=== PATIENT | female | born 2000 | race African-American/Black ===

== ENCOUNTER → 2021-01-26 14:51 | Outpatient (BNVA) | payer MEDICAID, SELFPAY | PROVIDERS: PCP Nurse Practitioner; Visit Provider Advanced Practice Midwife | DX: Z32.01 Encounter for pregnancy test, result positive (principal) | CPT/HCPCS: 81025; 99202 ==

== ENCOUNTER 2021-01-30 09:00 | Outpatient (REF) | payer MEDICAID, SELFPAY ==
--- NOTE | ~2021-01-30 | US_ITS ---
EXAMINATION: OBSTETRICAL ULTRASOUND, FIRST TRIMESTER HISTORY: 20-year-old with unknown LMP NT screening COMPARISON: None in this TECHNIQUE: Real time transabdominal imaging with color and M-mode Doppler. FINDINGS: A single, live IUP CRL of 76.8 mm c/w 13.6wks is noted. Heart Rate: 153 beats per minute. Normal yolk sac seen. NT was 1.5.mm. NB Present The embryo appears sonographically wnl for this GA. Both maternal ovaries are seen and appear normal. GESTATIONAL AGE: 1. Established GA: N/A wks 2. GA from AUA: 13.6 wks ESTIMATED DATE OF DELIVERY: 1. Established SKYE: N/A 2. SKYE from [facility]: 08/01/2021 US/US OB 1T nuc measure IMPRESSION: 1. A single live IUP 2. CRL corresponds to 13.6 weeks. Best SKYE is 08/01/2021 based on today's exam. 3. NT of 1.5 mm MFM Consultation: I reviewed the ultrasound findings along with significance of NT measurement. The NT of less than 3mm is generally reassuring. However, the sensitivity for T21 detection is only 60%. I reviewed the availability of serum aneuploidy screening which includes cell-free DNA and placental protein based tests. I discussed the sensitivity, false-positive rate, and other limitations associated with each test. I also reviewed the availability of invasive diagnostic tests that are associated small but definite risk of miscarriage. We also reviewed the differences between screening tests and diagnostic tests. After our discussion, she opted for the First trimester screening that is based on cell-free DNA or non-invasive testing (NIPT). The result will be faxed to your office in approximately 7 days. A follow up at 18 weeks for survey has been scheduled. Thank you very much for this referral. Total time 20 minutes. The time spent was devoted to counseling the patient about the disease and diagnosis, coordinating care including reviewing her records, pertinent lab data and studies, as well as discussing diagnostic evaluation and workup, plan therapeutic interventions and future disposition of care. This includes any additional research needed to obtain further information in formulating the plan of care of this patient. This note was generated with a voice recognition program. Please excuse any errors which may have been overlooked during my review of this note. Sometimes these errors may affect the content or meaning of a given sentence.
== END 2021-01-30 09:01 | disposition home or self-care (01) ==
LOC: HO.US 09:00
PROVIDERS: Visit Provider Advanced Practice Midwife
DX: Z36.82 Encounter for antenatal screening for nuchal translucency (principal)
CPT/HCPCS: 76813

== ENCOUNTER → 2021-02-11 13:47 | Outpatient (BNVA) | payer MEDICAID, SELFPAY | PROVIDERS: PCP Nurse Practitioner; Visit Provider Advanced Practice Midwife | DX: Z13.89 Encounter for screening for other disorder (principal) | CPT/HCPCS: 99212 ==

== ENCOUNTER 2021-02-19 22:46 | Emergency (ER) | payer MEDICAID, SELFPAY ==
--- NOTE | ~2021-02-19 | US_ITS ---
EXAMINATION: ULTRASOUND OB LIMITED CLINICAL INFORMATION: Vaginal bleeding, 16 weeks 6 days COMPARISON: 01/30/2021 TECHNIQUE: Sonographic evaluation of was performed transabdominally. FINDINGS: Single intrauterine identified with heart rate of 172 bpm. No anechoic amniotic fluid is present, which is a new finding compared to the prior study of 01/30/2021. Anterior placenta is noted, and there is echogenic material posterior to the placenta which is of uncertain etiology and may represent blood products. No movement is visualized. Head circumference measurement of 12.3 cm corresponds to gestational age of 16 weeks 2 days. Femur length of 2.1 cm corresponds to gestational age of 16 weeks 3 days. Suboptimal assessment of the abdominal circumference on the provided images. The right ovary measures 2.9 x 2.0 x 2.1 cm and appears unremarkable. The left ovary measures 2.2 x 2.1 x 1.3 cm and appears unremarkable. US/US OB limited IMPRESSION: No amniotic fluid is visualized, which is a new finding compared to 01/30/2021. Echogenic material is seen posterior to the placenta which may represent blood products. heart beat is identified, though no movement is observed. This critical result was discussed with Faviola Gray NP on 02/20/2021 2:50 AM, and it was ascertained that the content and urgency of the report was understood at the time of direct communication.
[2021-02-20 00:02] VITALS: BP 124/72; PULSE 88; RESP 16; TEMP 36.9; O2SAT 98; BMI 32.4
[2021-02-20 00:42] LABS: MANUAL DIFF FLAG NO
[2021-02-20 00:52] LABS: Basophils Percent Auto 0.1 % (0-2); Eosinophils Absolute Auto 0.4 X10*3/uL (0.0-0.4); Eosinophils Percent Auto 2.7 % (0-4); Hematocrit 36.9 % (37-47); Hemoglobin 12.1 g/dl (12.0-16.0); Imm Gran Abs Auto 0.05 X10*3/uL (0.00-0.03); Imm Gran Pct Auto 0.4 % (0.0-0.4); Mean Corpuscular HGB Conc 32.8 g/dl (31.0-35.0); Mean Corpuscular Hemoglobin 28.9 pg (27.0-33.0); Mean Corpuscular Volume 88.3 fL (80-98); Mean Platelet Volume 9.9 fL (9.4-12.3); Monocytes Absolute Auto 0.9 X10*3/uL (0.1-1.2); Monocytes Percent Auto 6.6 % (2-11); Neutrophils Absolute Auto 9.4 X10*3/uL (2.0-8.3); Neutrophils Percent Auto 68.2 % (45-73); Platelet Count 257 X10*3/uL (160-400); Red Blood Count 4.18 X10*6/uL (4.20-5.50); Red Cell Distribution Width 14.7 % (11.0-16.0); White Blood Count 13.8 X10*3/uL (4.8-10.8)
[2021-02-20 01:14] LABS: Alanine Aminotransferase 17 U/L (0-31); Albumin Level 3.5 g/dL (3.5-5.0); Alkaline Phosphatase 53 U/L (39-117); Anion Gap 14 (12-20); Aspartate Amino Transferase 17 U/L (5-31); Bilirubin Total 0.4 mg/dL (0.0-1.0); Blood Urea Nitrogen 8 mg/dL (9-16); Calcium 9.2 mg/dL (8.4-10.2); Carbon Dioxide 23 mmol/L (22-29); Chloride 106 mmol/L (96-108); Creatinine Clr Calc Pharmacy 126.7; Estimated Glomerular Filt Rate > 60; Glucose Random 93 mg/dL (60-115); Potassium 4.6 mmol/L (3.3-5.1); Sodium 138 mmol/L (135-145); Total Protein 6.5 g/dL (6.5-8.0)
[2021-02-20 01:41] LABS: HCG Quantitative 49152 mIU/mL
--- NOTE | 2021-02-20 01:56 | ED_ITS ---
HPI - General Chief complaint: OB Stated complaint: Vaginal bleeding/4 months preg Time Seen by Provider: 02/20/21 01:15 Source: patient Mode of arrival: ambulatory History of Present Illness HPI Narrative: 20-year-old female, gravid, 16.6 weeks based on ultrasound who presents with onset of vaginal bleeding after sexual intercourse approximately 2 hours prior to arrival. Patient states that initially there was copious amounts of blood with some clots towards the end and that the bleeding has slowly improved. Patient states that approximately 5 days ago she had a period of 3 days of abdominal cramping without any reports of fever, chills, nausea, vomiting, diarrhea or urinary symptoms. Patient states that that abdominal cramping stopped proximally 2 days ago. Related Data Home Medications Medication Instructions Recorded Confirmed prenat.vits,geno,tnh-[id number]-[id number] 1 tab PO DAILY 01/26/21 Previous Rx's Medication Instructions Recorded vitamin-ferrous fumarate 1 tab PO DAILY 30 Days #30 tab 02/11/21 28 mg iron-folic acid 800 mcg tablet Allergies Allergy/AdvReac Type Severity Reaction Status Date / Time No Known Allergies Allergy Verified 02/11/21 13:59 Review of Systems Review of Systems: Pertinent positives and negatives as stated in HPI and 10 point review of systems is otherwise negative. [facility] Past Medical History Source: nursing notes reviewed Medical History Asthma Family History Family History Brother Diabetes Maternal Aunt Diabetes Mother Cancer of breast, female Social History Social History Household Members: Family Housing: Condominium Are you a primary healthcare management to a significant other at home: No Do you presently have visiting nurse or other home services: No Alcohol intake: never Smoking Status: Never smoker Use of substances other than those prescribed or required for medical reasons: No Advance Directives: No Advance Directives Information Provided: No Patient : Yes Gender identity: female Physical Exam Vital Signs: Vital Signs: Last Vital Signs Temp 98.4 F 02/20/21 00:02 Pulse 83 02/20/21 02:59 Resp 16 02/20/21 02:59 BP 123/77 02/20/21 02:59 Pulse Ox 99 02/20/21 02:59 Body Mass Index 32.4 VITAL SIGNS: Reviewed. GENERAL: Well developed, well nourished, in no acute distress. HEAD: Normocephalic/atraumatic EYES: PERRLA, EOMI EARS: Ext canals without abnormality NOSE: Nares patent bilateral OROPHARYNX: no oral lesions noted, posterior pharynx clear NECK: Supple, no adenopathy LUNGS: Normal breath sounds. No adventitious sounds or accessory muscle use. SpO2<99> CARDIOVASCULAR: Regular rate and rhythm without noted murmurs ABDOMEN: Gravid, Soft, non-tender, non-distended with bowel sounds NEUROLOGIC: Alert and oriented x 4. Course Course Course Narrative: This is a 20-year-old female with history and clinical presentation concerning for complications. Review of all investigations significant for a leukocytosis which may be secondary to as patient has no chest/abdomen/urinary complaints. Review of ultrasound official reading is no amniotic fluid visualized, heartbeat is identified though no movement is observed . Patient was informed of all findings and informed that Dr. Niño would be contacting her tomorrow should she require the patient to follow-up sooner than her scheduled appointment next Tuesday. Reevaluation(s) Reevaluation #1: I discussed the case as well as the preliminary findings with Dr. Niño who recommends she will review the official ultrasound results in the morning and contact the patient tomorrow as indicated. Time: 02:15 MDM - OB/Uterine Contractions Lab Data Result diagrams: 02/20/21 00:36 02/20/21 00:30 Labs: Lab Results 02/20/21 02/20/21 02/20/21 Range/Units 00:30 00:36 00:36 WBC 13.8 H (4.8-10.8) X10*3/uL RBC 4.18 L (4.20-5.50) X10*6/uL Hgb 12.1 (12.0-16.0) g/dl Hct 36.9 L (37-47) % MCV 88.3 (80-98) fL MCH 28.9 (27.0-33.0) pg MCHC 32.8 (31.0-35.0) g/dl RDW 14.7 (11.0-16.0) % Plt Count 257 (160-400) X10*3/uL MPV 9.9 (9.4-12.3) fL Immature Gran % (Auto) 0.4 (0.0-0.4) % Neut % (Auto) 68.2 (45-73) % Lymph % (Auto) 22.0 (20-40) % [place] % (Auto) 6.6 (2-11) % Eos % (Auto) 2.7 (0-4) % Baso % (Auto) 0.1 (0-2) % Lymph # (Auto) 3.0 (1.2-4.9) X10*3/uL [place] # (Auto) 0.9 (0.1-1.2) X10*3/uL Eos # (Auto) 0.4 (0.0-0.4) X10*3/uL Baso # (Auto) 0.0 (0.0-0.2) X10*3/uL Abs Immat Gran (auto) 0.05 H (0.00-0.03) X10*3/uL Absolute Neuts (auto) 9.4 H (2.0-8.3) X10*3/uL Absolute Nucleated RBC 0.000 (0.0-0.012) X10*3/uL Nucleated RBC % (auto) 0.0 (0.0-0.2) /100WBC Hold Blue Top SEE NOTE Sodium 138 (135-145) mmol/L Potassium 4.6 (3.3-5.1) mmol/L Chloride 106 (96-108) mmol/L Carbon Dioxide 23 (22-29) mmol/L Anion Gap 14 (12-20) BUN 8 L (9-16) mg/dL Creatinine 0.75 (0.5-1.4) mg/dL Estim Creat Clear Calc 126.7 Estimated GFR > 60 Random Glucose 93 (60-115) mg/dL Calcium 9.2 (8.4-10.2) mg/dL Total Bilirubin 0.4 (0.0-1.0) mg/dL AST 17 (5-31) U/L ALT 17 (0-31) U/L Alkaline Phosphatase 53 (39-117) U/L Total Protein 6.5 (6.5-8.0) g/dL Albumin 3.5 (3.5-5.0) g/dL Beta HCG, Quant 56129 mIU/mL Urine Color Urine Appearance Urine pH (5.0-8.0) Ur Specific [place] (1.005-1.025) Urine Protein (NEG-TRACE) MG/DL Urine Glucose (UA) (NEG) MG/DL Urine Ketones (NEG) MG/DL Urine Blood (NEG) Urine Nitrite (NEG) Ur Leukocyte Esterase (NEG) 02/20/21 Range/Units 03:19 WBC (4.8-10.8) X10*3/uL RBC (4.20-5.50) X10*6/uL Hgb (12.0-16.0) g/dl Hct (37-47) % MCV (80-98) fL MCH (27.0-33.0) pg MCHC (31.0-35.0) g/dl RDW (11.0-16.0) % Plt Count (160-400) X10*3/uL MPV (9.4-12.3) fL Immature Gran % (Auto) (0.0-0.4) % Neut % (Auto) (45-73) % Lymph % (Auto) (20-40) % [place] % (Auto) (2-11) % Eos % (Auto) (0-4) % Baso % (Auto) (0-2) % Lymph # (Auto) (1.2-4.9) X10*3/uL [place] # (Auto) (0.1-1.2) X10*3/uL Eos # (Auto) (0.0-0.4) X10*3/uL Baso # (Auto) (0.0-0.2) X10*3/uL Abs Immat Gran (auto) (0.00-0.03) X10*3/uL Absolute Neuts (auto) (2.0-8.3) X10*3/uL Absolute Nucleated RBC (0.0-0.012) X10*3/uL Nucleated RBC % (auto) (0.0-0.2) /100WBC Hold Blue Top Sodium (135-145) mmol/L Potassium (3.3-5.1) mmol/L Chloride (96-108) mmol/L Carbon Dioxide (22-29) mmol/L Anion Gap (12-20) BUN (9-16) mg/dL Creatinine (0.5-1.4) mg/dL Estim Creat Clear Calc Estimated GFR Random Glucose (60-115) mg/dL Calcium (8.4-10.2) mg/dL Total Bilirubin (0.0-1.0) mg/dL AST (5-31) U/L ALT (0-31) U/L Alkaline Phosphatase (39-117) U/L Total Protein (6.5-8.0) g/dL Albumin (3.5-5.0) g/dL Beta HCG, Quant mIU/mL Urine Color YELLOW Urine Appearance CLEAR Urine pH 7.0 (5.0-8.0) Ur Specific [place] 1.020 (1.005-1.025) Urine Protein NEG (NEG-TRACE) MG/DL Urine Glucose (UA) NEG (NEG) MG/DL Urine Ketones NEG (NEG) MG/DL Urine Blood 3+ H (NEG) Urine Nitrite NEG (NEG) Ur Leukocyte Esterase NEG (NEG) Discharge Plan Discharge Clinical Impression: Vaginal bleeding in patient after first trimester, Absence of m ovement, Amniotic fluid abnormal Patient Disposition: Home, Self-Care Additional Instructions: Recommend taking [id number] Tylenol/ibuprofen for abdominal discomfort. Recommend using menstrual pads as needed. Dr. Niño will contact you in the morning should you need to come in prior to your appointment on Tuesday. Return to the emergency room if you develop acute worsening of your abdominal pain, fevers, chills, nausea, vomiting. Prescriptions: No Action vit-iron fum-folic ac [ Vitamin with Minerals] 28 mg iron- 80 0 mcg tablet 1 tab PO DAILY 30 Days Qty: 30 RF: 11 prenat.vits,geno,[id number] Tablet 1 tab PO DAILY RF: 0 Referrals: Thuy Niño MD [Physician] - 2 days
--- NOTE | 2021-02-20 02:00 | PC.NURSE ---
PT RESTING IN BED REPORTS NO BLEEDING AT THIS TIME, SKIN PWD RESPIRATIONS MYKE UNLABORED. AWAITING US. AWARE OF PLAN OF CARE.
--- NOTE | 2021-02-20 02:57 | PC.NURSE ---
PT REPORTS BLOOD ON TISSUE WHEN WIPING SELF AFTER US, BUT NO BLOOD IN PAD OR ON MARISOL PAD THROUGHOUT STAY.REPORTS SLIGHT CRAMPING AT THIS TIME. VSS. AWAITING RESULTS AND MD REEVAL. AWARE OF PLAN OF CARE.
[2021-02-20 02:59] VITALS: BP 123/77; PULSE 83; RESP 16; O2SAT 99
[2021-02-20 03:50] LABS: Glucose Urine UA NEG (NEG); Leukocyte Esterase Urine NEG (NEG); Nitrite Urine NEG (NEG); Urine Blood 3+ (NEG); Urine Ketones NEG (NEG); Urine Protein NEG (NEG-TRACE)
[2021-02-20 03:53] LABS: Appearance Urine CLEAR; Color Urine YELLOW
[2021-02-20 04:02] LABS: Mucus Urine TRACE /LPF; RBC Urine 30-49 /HPF (0); Squamous Epithelial Cell Urine TRACE /LPF; WBC Urine 0-2 /HPF (0-4)
[2021-02-20 04:03] LABS: Amorphous Sediment Urine 2+ /LPF; Granular Casts Urine 0-2 /LPF; Uric Acid Crystals Urine TRACE /LPF
== END 2021-02-20 04:09 | disposition home or self-care (01) ==
PROVIDERS: Emergency Provider Student in an Organized Health Care Education/Training Program
DX: O46.92 Antepartum hemorrhage, unspecified, second trimester (principal); O36.8120 Decreased fetal movements, second trimester, not applicable or unspecified; O41.02X0 Oligohydramnios, second trimester, not applicable or unspecified; Z3A.16 16 weeks gestation of pregnancy
CPT/HCPCS: 36415; 76815; 80053; 81001; 84702; 85025; 99284; 99285

== ENCOUNTER → 2021-02-20 13:46 | Outpatient (BNVA) | payer MEDICAID, SELFPAY | PROVIDERS: Visit Provider Obstetrics & Gynecology | DX: O42.912 Preterm premature rupture of membranes, unspecified as to length of time between rupture and onset of labor, second trimester (principal); Z3A.16 16 weeks gestation of pregnancy | CPT/HCPCS: 99212 ==

== ENCOUNTER 2021-03-14 01:02 | Emergency (ER) | payer MEDICAID, SELFPAY ==
[2021-03-14 01:10] VITALS: BP 115/85; BP 128/83; PULSE 79; PULSE 94; RESP 15; TEMP 37; O2SAT 100; O2SAT 99; BMI 30.2
--- NOTE | 2021-03-14 02:35 | ED_ITS ---
HPI - Abdominal Pain General Chief Complaint: Abdominal Pain Stated Complaint: abd back pain Time Seen by Provider: 03/14/21 02:34 History of Present Illness HPI narrative: Patient 20 old female had a D&C done 1 week ago. Presents today with having abdominal pain in the epigastric area. No fever no chills. No nausea no vomiting. Lasted for about half an hour. The pain has subsided she has no pain currently. No dizziness no chest pain or shortness of breath no diaphoresis. Patient from home. No vaginal bleeding. No diarrhea. Related Data Home Medications Medication Instructions Recorded Confirmed prenat.vits,geno,[id number] 1 tab PO DAILY 01/26/21 Previous Rx's Medication Instructions Recorded vitamin-ferrous fumarate 1 tab PO DAILY 30 Days #30 tab 02/11/21 28 mg iron-folic acid 800 mcg tablet Allergies Allergy/AdvReac Type Severity Reaction Status Date / Time No Known Allergies Allergy Verified 02/20/21 13:54 Review of Systems Review of Systems Constitutional: No Weight loss, No Fever, No Chills, No Night Sweats, No Fatigue, No Malaise ENT/Mouth: No Hearing loss, No Ear Pain, No Nasal Congestion, No Sinus Pain, No Hoarseness, No sore throat, No Rhinorrhea, No Swallowing Difficulty Eyes: No Eye Pain, No Swelling, No Redness, No Foreign Body, No Discharge, No Vision Changes Cardiovascular: No Chest Pain, No SOB, No Dyspnea on Exertion, No Orthopnea, No Edema, No Palpitations Respiratory: No Cough, No Sputum, No Wheezing, No Smoke Exposure, No Dyspnea Gastrointestinal: No Nausea, No Vomiting, No Diarrhea, No Constipation, positive abdominal Pain, No Hematochezia, No Melena Genitourinary: no irregular bleeding, No Dysuria, No Urinary Frequency, No Hematuria, No Urinary Incontinence, No Urgency, No Flank Pain, No Urinary Flow Changes, No Hesitancy Musculoskeletal: No joint pain, No Myalgias, No Joint Swelling Skin: No Skin Lesions, No rash Neuro: No Weakness, No Numbness, No Paresthesias, No Loss of Consciousness, No Dizziness, No Headache Psych: No Anxiety/Panic, No Depression, No SI/HI/AH/VH, No Social Issues, Heme/Lymph: No Bruising, No Bleeding,No Lymphadenopathy Endocrine: No Polyuria, No Polydipsia, No Temperature Intolerance Physical Exam Vital Signs: Vital Signs: Last Vital Signs Temp 98.6 F 03/14/21 01:10 Pulse 79 03/14/21 01:10 Resp 15 03/14/21 01:10 BP 128/83 03/14/21 01:10 Pulse Ox 99 03/14/21 01:10 Body Mass Index 30.2 Appearance: Alert. Oriented X3. No acute distress. Eyes: Pupils equal, round and reactive to light. ENT: Pharynx normal. Neck: Normal inspection. Neck supple. No lymph nodes noted. No crepitus CVS: Normal heart rate and rhythm. Pulses normal. Normal S1 and S2 Respiratory: No respiratory distress. Breath sounds normal. No Wheezing. No rales Abdomen: Soft and nontender. No rigidity. No distention. good BS x4 Skin: Skin warm and dry. Normal skin color. Normal skin turgor. Extremities: No lower extremity edema. Neurovascular intact to all extremities. No Lacerations. No Rash Neuro: Oriented X 3. No motor deficit. No sensory deficit. Moving all extermities. No slurred speech MDM - Abdominal Pain MDM Narrative Medical decision making narrative: Well-appearing no acute distress. Has abdominal pain earlier. The abdominal exam now is soft nontender. Has no pain currently. Will check baseline labs. We will monitor carefully. In no distress. Patient's just had a D& C. Unlikely to be . Patient is electrolytes are normal. Well-appearing. LFTs are normal. No evidence for liver disease. Patient pain has resolved. No distress. Will discharge patient home. Lab Data Result diagrams: 03/14/21 03:10 03/14/21 03:10 Labs: Lab Results 03/14/21 03/14/21 Range/Units 03:10 03:10 WBC 12.1 H (4.8-10.8) X10*3/uL RBC 4.17 L (4.20-5.50) X10*6/uL Hgb 11.8 L (12.0-16.0) g/dl Hct 37.8 (37-47) % MCV 90.6 (80-98) fL MCH 28.3 (27.0-33.0) pg MCHC 31.2 (31.0-35.0) g/dl RDW 13.1 (11.0-16.0) % Plt Count 284 (160-400) X10*3/uL MPV 10.4 (9.4-12.3) fL Immature Gran % (Auto) 0.3 (0.0-0.4) % Neut % (Auto) 70.1 (45-73) % Lymph % (Auto) 20.4 (20-40) % [place] % (Auto) 6.2 (2-11) % Eos % (Auto) 2.7 (0-4) % Baso % (Auto) 0.3 (0-2) % Lymph # (Auto) 2.5 (1.2-4.9) X10*3/uL [place] # (Auto) 0.8 (0.1-1.2) X10*3/uL Eos # (Auto) 0.3 (0.0-0.4) X10*3/uL Baso # (Auto) 0.0 (0.0-0.2) X10*3/uL Abs Immat Gran (auto) 0.04 H (0.00-0.03) X10*3/uL Absolute Neuts (auto) 8.5 H (2.0-8.3) X10*3/uL Absolute Nucleated RBC 0.000 (0.0-0.012) X10*3/uL Nucleated RBC % (auto) 0.0 (0.0-0.2) /100WBC Sodium 140 (135-145) mmol/L Potassium 4.4 (3.3-5.1) mmol/L Chloride 107 (96-108) mmol/L Carbon Dioxide 23 (22-29) mmol/L Anion Gap 14 (12-20) BUN 9 (9-16) mg/dL Creatinine 0.84 (0.5-1.4) mg/dL Estim Creat Clear Calc 113.3 Estimated GFR > 60 Random Glucose 102 (60-115) mg/dL Calcium 9.0 (8.4-10.2) mg/dL Total Bilirubin 0.3 (0.0-1.0) mg/dL AST 12 (5-31) U/L ALT 12 (0-31) U/L Alkaline Phosphatase 63 (39-117) U/L Total Protein 6.3 L (6.5-8.0) g/dL Albumin 3.9 (3.5-5.0) g/dL Lipase 24 (8-78) U/L Discharge Plan Discharge Clinical Impression: Abdominal pain Patient Disposition: Home, Self-Care Instructions: Acute Abdominal Pain (ED) Prescriptions: No Action vit-iron fum-folic ac [ Vitamin with Minerals] 28 mg iron- 800 mcg tablet 1 tab PO DAILY 30 Days Qty: 30 RF: 11 prenat.vits,geno,[id number]-[id number] Tablet 1 tab PO DAILY RF: 0 PMFSH Past Medical History Attestation statement: The following information was validated with the patient. Medical History Asthma Family History Family History Brother Diabetes Maternal Aunt Diabetes Mother Cancer of breast, female Social History Social History Household Members: Family Housing: Condominium Are you a primary field care manager to a significant other at home: No Do you presently have visiting nurse or other home services: No Alcohol intake: never Patient Tobacco Use Status: Never used Tobacco Use of substances other than those prescribed or required for medical reasons: No Advance Directives: No Patient : No Gender identity: female
[2021-03-14 03:16] LABS: MANUAL DIFF FLAG NO
[2021-03-14 03:26] LABS: Basophils Percent Auto 0.3 % (0-2); Eosinophils Absolute Auto 0.3 X10*3/uL (0.0-0.4); Eosinophils Percent Auto 2.7 % (0-4); Hematocrit 37.8 % (37-47); Hemoglobin 11.8 g/dl (12.0-16.0); Imm Gran Abs Auto 0.04 X10*3/uL (0.00-0.03); Imm Gran Pct Auto 0.3 % (0.0-0.4); Lymphocytes Absolute Auto 2.5 X10*3/uL (1.2-4.9); Lymphocytes Percent Auto 20.4 % (20-40); Mean Corpuscular HGB Conc 31.2 g/dl (31.0-35.0); Mean Corpuscular Hemoglobin 28.3 pg (27.0-33.0); Mean Corpuscular Volume 90.6 fL (80-98); Mean Platelet Volume 10.4 fL (9.4-12.3); Monocytes Absolute Auto 0.8 X10*3/uL (0.1-1.2); Monocytes Percent Auto 6.2 % (2-11); Neutrophils Absolute Auto 8.5 X10*3/uL (2.0-8.3); Neutrophils Percent Auto 70.1 % (45-73); Platelet Count 284 X10*3/uL (160-400); Red Blood Count 4.17 X10*6/uL (4.20-5.50); Red Cell Distribution Width 13.1 % (11.0-16.0); White Blood Count 12.1 X10*3/uL (4.8-10.8)
[2021-03-14 03:39] LABS: Alanine Aminotransferase 12 U/L (0-31); Albumin Level 3.9 g/dL (3.5-5.0); Alkaline Phosphatase 63 U/L (39-117); Anion Gap 14 (12-20); Aspartate Amino Transferase 12 U/L (5-31); Bilirubin Total 0.3 mg/dL (0.0-1.0); Blood Urea Nitrogen 9 mg/dL (9-16); Carbon Dioxide 23 mmol/L (22-29); Chloride 107 mmol/L (96-108); Creatinine Clr Calc Pharmacy 113.3; Estimated Glomerular Filt Rate > 60; Glucose Random 102 mg/dL (60-115); Lipase 24 U/L (8-78); Potassium 4.4 mmol/L (3.3-5.1); Sodium 140 mmol/L (135-145); Total Protein 6.3 g/dL (6.5-8.0)
[2021-03-14 04:00] VITALS: BP 124/80; PULSE 79; RESP 15; TEMP 37; O2SAT 99
[2021-03-14 04:41] LABS: Appearance Urine HAZY; Color Urine YELLOW; Glucose Urine UA NEG (NEG); Leukocyte Esterase Urine 2+ (NEG); Nitrite Urine NEG (NEG); PH 6.5 (5.0-8.0); UACC Culture Trigger YES; Urine Blood TRACE (NEG); Urine Ketones NEG (NEG); Urine Protein NEG (NEG-TRACE)
[2021-03-14 04:49] LABS: Amorphous Sediment Urine 2+ /LPF; Bacteria Urine 3+ /LPF; RBC Urine 0-2 /HPF (0); Squamous Epithelial Cell Urine 3+ /LPF; WBC Urine 50-75 /HPF (0-4)
== END 2021-03-14 05:21 | disposition home or self-care (01) ==
PROVIDERS: Emergency Provider Emergency Medicine Emergency Medical Services
DX: R10.9 Unspecified abdominal pain (principal)
CPT/HCPCS: 36415; 80053; 81001; 81003; 83690; 85025; 87086; 99283; 99285

== ENCOUNTER 2021-09-30 11:53 | Emergency (ER) | payer MEDICAID, SELFPAY ==
[2021-09-30 12:03] VITALS: BP 120/80; BP 124/76; PULSE 104; PULSE 93; RESP 20; TEMP 36.8; O2SAT 100; BMI 27.4
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
[2021-09-30] MEDS: Ibuprofen 600 MG TABLET PO (13:18)
== END 2021-09-30 13:38 | disposition home or self-care (01) ==
LOC: HO.ED 13:25
PROVIDERS: Emergency Provider Emergency Medicine; PCP Pediatrics
DX: S00.83XA Contusion of other part of head, initial encounter (principal); S16.1XXA Strain of muscle, fascia and tendon at neck level, initial encounter; S39.012A Strain of muscle, fascia and tendon of lower back, initial encounter; V43.52XA Car driver injured in collision with other type car in traffic accident, initial encounter; R51.9 Headache, unspecified; Y93.89 Activity, other specified; Y92.014 Private driveway to single-family (private) house as the place of occurrence of the external cause; Y99.9 Unspecified external cause status
CPT/HCPCS: 99283; 99284

== ENCOUNTER 2022-08-01 12:22 | Outpatient (REF) | payer OTHER, SELFPAY ==
[2022-08-01 13:56] LABS: COVID-19 Test Positive (Negative)
== END 2022-08-01 12:23 | disposition home or self-care (01) ==
LOC: HO.LAB 12:22
PROVIDERS: Visit Provider Internal Medicine
DX: Z20.822 Contact with and (suspected) exposure to COVID-19 (principal)
CPT/HCPCS: 87635

== ENCOUNTER 2022-10-19 21:40 | Outpatient (REF) | payer OTHER, SELFPAY ==
[2022-10-19 22:07] LABS: COVID-19 Test Negative (Negative); IDNOW Serial# 08D9AD1C
== END 2022-10-19 21:41 | disposition home or self-care (01) ==
LOC: HO.LAB 21:40
PROVIDERS: Visit Provider Internal Medicine
DX: Z20.822 Contact with and (suspected) exposure to COVID-19 (principal)
CPT/HCPCS: 87635

== ENCOUNTER 2022-12-22 13:01 | Outpatient (REF) | payer MEDICAID, SELFPAY ==
[2022-12-23 01:08] LABS: CT PCR NOT DETECTED (Not Detect.); NG PCR NOT DETECTED (Not Detect.)
== END 2022-12-22 13:02 | disposition home or self-care (01) ==
LOC: HO.LNP 13:01
PROVIDERS: Visit Provider Advanced Practice Midwife
DX: Z01.419 Encounter for gynecological examination (general) (routine) without abnormal findings (principal); Z20.2 Contact with and (suspected) exposure to infections with a predominantly sexual mode of transmission
CPT/HCPCS: 0353U; 88142

== ENCOUNTER 2023-03-23 13:16 | Emergency (ER) | payer MEDICAID, SELFPAY ==
--- NOTE | ~2023-03-23 | XR_ITS ---
EXAMINATION: XR CHEST CLINICAL INFORMATION: Cough. Shortness of breath. COMPARISON: Chest x-ray 07/16/2019 TECHNIQUE: 2 views of the chest were obtained. FINDINGS: No significant abnormality is noted involving the heart, lungs, mediastinum, bony thorax or soft tissues. XR/XR chest 2V IMPRESSION: Unremarkable examination.
--- NOTE | 2023-03-23 13:45 | ED_ITS ---
HPI - SOB/Dyspnea General Chief Complaint: Upper Respiratory Symptoms Stated Complaint: Diff Breathing Asthma Time Seen by Provider: 03/23/23 14:18 Source: patient and RN notes reviewed Mode of arrival: ambulatory Limitations: no limitations History of Present Illness HPI Narrative: This is a 22-year-old female, with a past medical history of asthma, presenting to the emergency department with complaints of exacerbated asthma for the last several days. Patient reports that she recently got a new dog and has noticed that she has had increased shortness of breath, and wheezing. She admits to having some chest wall pain only with cough. Patient has been using her albuterol inhaler however has not had any relief with this. Patient denies any fevers, chills, sore throat, ear pain, palpitations, abdominal pain, nausea, vomiting, or diarrhea. She denies any recent travel, surgeries, hospitalizations, history of blood clots, history of cancer, or family medical history of clotting disorders. She is not on control. No other complaints or concerns at this time. MD elicited complaint: shortness of breath and cough Pertinent past history: asthma Onset (ago): day(s) Context: allergen exposure Timing: constant Exacerbating factors: nothing Relieving factors: nothing Known history of: asthma Associated symptoms: denies other symptoms Related Data Home Medications Medication Instructions Recorded Confirmed albuterol sulfate 90 mcg/actuation 2 puff inhalation Q6H PRN 12/22/22 aerosol inhaler Previous Rx's Medication Instructions Recorded acetaminophen 500 mg tablet 1,000 mg PO QID PRN pain #30 tabs 09/30/21 vitamin with calcium 1 tab PO DAILY #90 tabs 12/22/22 no.72-iron 27 mg-folic acid 1 mg tablet ( Vitamins Plus Low Iron) albuterol sulfate 2.5 mg/0.5 mL 5 mg inhalation Q6H PRN shortness 03/23/23 solution for nebulization of breath or wheezing #30 ea nebulizers (AeroEclipse II #1 ea 03/23/23 Nebulizer) prednisone 20 mg tablet 40 mg PO DAILY 4 days #8 tabs 03/23/23 Allergies Allergy/AdvReac Type Severity Reaction Status Date / Time No Known Allergies Allergy Verified 03/23/23 13:45 Review of Systems Review of Systems: Constitutional: No Weight loss, No Fever, No Chills ENT/Mouth: No Ear Pain, No Nasal Congestion, No Sinus Pain, No Hoarseness, No sore throat, No Rhinorrhea, No Swallowing Difficulty Cardiovascular: No Chest Pain Respiratory: +Cough, No Sputum, +Wheezing. +SOB Gastrointestinal: No Nausea, No Vomiting, No Diarrhea, No Constipation, No Abdominal pain Genitourinary: No Dysuria, No Urinary Frequency, No Hematuria, No Urinary Incontinence/retention, No Urgency, No Flank Pain Musculoskeletal: No joint pain, No Myalgias, No Joint Swelling Skin: No Skin Lesions, No rash Neuro: No Weakness, No Numbness, No Paresthesias Yes all other systems are reviewed and are negative Constitutional: Constitutional: Reports as per [facility] Past Medical History Medical History (Updated 03/23/23 @ 16:52 by DEREK Mosher) Asthma Surgical History History of dilatation and curettage Family History Family History Brother Diabetes Maternal Aunt Diabetes Mother Cancer of breast, female, Onset Age: 36 Social History Social History Household Members: Family Housing: Condominium Are you a primary respiratory care technician to a significant other at home: No Do you presently have visiting nurse or other home services: No Alcohol intake: never Patient Tobacco Use Status: Never used Tobacco Smoked in Last 30 Days: No Use of substances other than those prescribed or required for medical reasons: Yes Substance Use Type: Marijuana Substance Use Frequency: Occasionally Advance Directives: No Advance Directives Information Provided: Yes Patient : No Sexual orientation: Straight/Heterosexual Gender identity: Female Physical Exam Vital Signs: Vital Signs: Last Vital Signs Temp 97.8 F 03/23/23 16:33 Pulse 118 H 03/23/23 16:33 Resp 20 03/23/23 16:33 BP 128/57 L 03/23/23 16:33 Pulse Ox 99 03/23/23 16:33 O2 Del Method Room Air 03/23/23 16:33 BMI result Body Mass Index 33.0 Const: General: cooperative, comfortable and no acute distress Orientation/consciousness: patient oriented x3 Limitations: no limitations HEENT: Head: Yes normal to inspection, Yes normocephalic and Yes atraumatic Ears: hearing grossly normal bilaterally General nose exam: Normal external nose present Face and sinus: Yes normal facial exam Mouth: Normal oral and palatal mucosa present, oropharynx normal and moist mucous membranes Throat: Yes posterior oropharynx normal Eyes: General: appearance normal, both eyes and all related structures Eyelids: Yes eyelids normal Conjunctivae: conjunctivae normal Sclerae: sclerae normal Pupils: Equal, round and reactive pupils present EOM: EOMs intact bilaterally Neck: Neck: Yes normal visual inspection, Yes full ROM and Yes no lymphadenopathy Lymphatic: no lymphadenopathy noted Chest: Chest palpation & inspection: normal inspection of the chest Resp: Other: Diminished lung sounds in bilateral lung bases, inspiratory and expiratory wheezes noted throughout, more pronounced in left upper lung. Effort & Inspection: normal respiratory effort and able to speak in complete sentences Cardio: Rate: regular rate Rhythm: regular rhythm Heart sounds: S1 normal heart sound present and S2 normal heart sound present GI: Inspection: Yes normal to inspection Skin: General skin exam: no rashes or lesions noted Trauma: no lacerations or abrasions Wounds: no wounds Neuro: General: patient oriented x3 and moves all extremities Cranial n erves: Yes Equal, round and reactive pupils present Extrem: General: Yes normal to inspection Right upper extremity: normal to inspection Left upper extremity: normal to inspection Right lower extremity: normal to inspection Left lower extremity: normal to inspection Course Course Course Narrative: RME: 22yo F w/PMHx asthma c/o chest tightness, SOB, cough and wheezing x2 weeks. Admits substernal chest discomfort worse w/coughing and bending down has been using inhaler more than normal w/o relief. Lungs w/expiratory wheeze RUL and bibasilar Covid, CXR, Labs ordered Full HPI, ROS and PE to be performed by primary ED provider. Reevaluation(s) Reevaluation #1: Patient medicated with prednisone 40 mg p.o. given albuterol updraft. Patient re-evaluated, better air movement throughout all lung lucas there is expiratory wheezing noted to left upper lung field. Reevaluation #2: Patient re-evaluated after 2nd albuterol updraft, much better air movement, patient is feeling much better, Vital signs remained stable, patient is mildly tachycardic at 118 beats per minute however given 2 doses of albuterol updrafts this is likely her symptoms, oxygen saturation 99% on room air. patient given course of prednisone and advised to follow-up with her primary care physician. Patient understands and agrees with plan. Patient educated the importance of returning should any of her symptoms worsen. Patient stable for discharge. Medications Administered Discontinued Medications Generic Name Dose Route Start Last Admin Trade Name Zack PRN Reason Stop Dose Admin Albuterol Sulfate 5 mg 03/23/23 14:25 03/23/23 14:51 Albuterol Sulfate (0.083%) 2.5 Mg/3 Ml Vial.Neb INHALE 03/23/23 14:26 5 mg ONCE ONE Administration Albuterol Sulfate 5 mg 03/23/23 15:53 03/23/23 16:15 Albuterol Sulfate (0.083%) 2.5 Mg/3 Ml Vial.Neb INHALE 03/23/23 15:54 5 mg ONCE ONE Administration Prednisone 40 mg 03/23/23 14:25 03/23/23 14:40 Prednisone 20 Mg Tablet PO 03/23/23 14:26 40 mg ONCE ONE Administration Medical Decision Making Medical Decision Making [facility] Narrative: 22-year-old female, with a past medical history of asthma, presenting to the emergency department for evaluation of cough, wheezing, and shortness of breath for the last several days. She recently got a new dog and has a history of allergies and states that this has caused her asthma to worsen. Patient has inspiratory and expiratory wheezes and diminished lung sounds in the bilateral lung bases. She has been using her albuterol inhalers at home without any relief. On arrival, vital signs within normal limits, O2 saturation 100% on tunde m air. Patient is not tachycardic or hypoxic, perc negative, no risk factors for pulmonary embolism. Patient admitting to have chest pain with coughing. Plan: Chest x-ray, basic labs, troponin, COVID Differential Diagnosis Differential Diagnoses: The differential diagnosis associated with the presentation includes Asthma exacerbation, viral syndrome, upper respiratory infection, reactive airway disease, PE- unlikely Admission/Observation Consideration of admission/observation: Escalation of care including admission/observation considered Lab Data [facility] Lab Attestation statement: I reviewed the patient's lab results. 03/23/23 14:03 03/23/23 14:03 Labs: Lab Results 03/23/23 03/23/23 03/23/23 Range/Units 14:03 14:03 14:03 WBC 7.5 (4.8-10.8) X10*3/uL RBC 4.82 (4.20-5.50) X10*6/uL Hgb 13.5 (12.0-16.0) g/dl Hct 42.6 (37.0-47.0) % MCV 88.4 (80.0-98.0) fL MCH 28.0 (27.0-33.0) pg MCHC 31.7 (31.0-35.0) g/dl RDW 13.0 (11.0-16.0) % Plt Count 267 (160-400) X10*3/uL MPV 10.0 (9.4-12.3) fL Immature Gran % (Auto) 0.3 (0.0-0.4) % Neut % (Auto) 54.9 (45-73) % Lymph % (Auto) 30.0 (20-40) % [place] % (Auto) 5.9 (2-11) % Eos % (Auto) 8.2 H (0-4) % Baso % (Auto) 0.7 (0-2) % Lymph # (Auto) 2.2 (1.2-4.9) X10*3/uL [place] # (Auto) 0.4 (0.1-1.2) X10*3/uL Eos # (Auto) 0.6 H (0.0-0.4) X10*3/uL Baso # (Auto) 0.1 (0.0-0.2) X10*3/uL Abs Immat Gran (auto) 0.02 (0.00-0.03) X10*3/uL Absolute Neuts (auto) 4.1 (2.0-8.3) x10*3/uL Absolute Nucleated RBC 0.000 (0.0-0.012) X10*3/uL Nucleated RBC % (auto) 0.0 (0.0-0.2) /100WBC PT 10.7 (10.0-13.1) SEC INR 0.9 (0.9-1.1) Sodium 141 (135-145) mmol/L Potassium 4.0 (3.3-5.1) mmol/L Chloride 108 (96-108) mmol/L Carbon Dioxide 25 (22-29) mmol/L Anion Gap 12 (12-20) BUN 11 (9-16) mg/dL Creatinine 0.86 (0.5-1.4) mg/dL Estim Creat Clear Calc 109.6 Estimated GFR > 60 Random Glucose 105 (60-115) mg/dL Calcium 9.5 (8.4-10.2) mg/dL Troponin I High Sens (<3.5-17.0) ng/L COVID-19 ([facility]) (Negative) COVID-19 Clin Com 03/23/23 03/23/23 Range/Units 14:03 14:03 WBC (4.8-10.8) X10*3/uL RBC (4.20-5.50) X10*6/uL Hgb (12.0-16.0) g/dl Hct (37.0-47.0) % MCV (80.0-98.0) fL MCH (27.0-33.0) pg MCHC (31.0-35.0) g/dl RDW (11.0-16.0) % Plt Count (160-400) X10*3/uL MPV (9.4-12.3) fL Immature Gran % (Auto) (0.0-0.4) % Neut % (Auto) (45-73) % Lymph % (Auto) (20-40) % [place] % (Auto) (2-11) % Eos % (Auto) (0-4) % Baso % (Auto) (0-2) % Lymph # (Auto) (1.2-4.9) X10*3/uL [place] # (Auto) (0.1-1.2) X10*3/uL Eos # (Auto) (0.0-0.4) X10*3/uL Baso # (Auto) (0.0-0.2) X10*3/uL Abs Immat Gran (auto) (0.00-0.03) X10*3/uL Absolute Neuts (auto) (2.0-8.3) x10*3/uL Absolute Nucleated RBC (0.0-0.012) X10*3/uL Nucleated RBC % (auto) (0.0-0.2) /100WBC PT (10.0-13.1) SEC INR (0.9-1.1) Sodium (135-145) mmol/L Potassium (3.3-5.1) mmol/L Chloride (96-108) mmol/L Carbon Dioxide (22-29) mmol/L Anion Gap (12-20) BUN (9-16) mg/dL Creatinine (0.5-1.4) mg/dL Estim Creat Clear Calc Estimated GFR Random Glucose (60-115) mg/dL Calcium (8.4-10.2) mg/dL Troponin I High Sens < 2.7 (<3.5-17.0) ng/L COVID-19 ([facility]) Negative (Negative) COVID-19 Clin Com See Note Radiology Impression Discussion of test interpretation with radiology: I have reviewed the radiologist's reading. External Record Review External record reviewed: Inpatient record, Office record, Outpatient record, Prior outpatient labs, Prior outpatient radiology, Primary care record and Outside ED record Scores Additional Scores PERC Score: Score: 0 Discharge Plan Discharge Clinical Impression: Asthma exacerbation Patient Disposition: Home, Self-Care Instructions: Asthma (ED) Additional Instructions: Your chest x-ray was normal, you tested negative for COVID, all other blood work reassuring today. Please take prescribed prednisone as directed. Take this tomorrow as you already received her 1st dose today. If you develop any worsening chest pain, palpitations, worsening shortness of breath, please return for re-evaluation. Please call your primary care physician tomorrow as they will likely want to follow you to ensure your symptoms are improving. Prescriptions: New prednisone 20 mg tablet 40 mg PO DAILY 4 Days Qty: 8 0RF (DME) nebulizers [AeroEclipse II Nebulizer[place] [facility] [place] .Route Qty: 1 0RF Rx Instructions: As directed albuterol sulfate 2.5 mg/0.5 mL solution for nebulization 5 mg inhalation Q6H PRN (Reason: shortness of breath or wheezing) Qty: 30 0RF No Action acetaminophen 500 mg tablet 1,000 mg PO QID PRN (Reason: pain) Qty: 30 0RF albuterol sulfate 90 mcg/actuation HFA aerosol inhaler 2 puff inhalation Q6H PRN Vitamin Plus Low Iron 27 mg iron- 1 mg tablet 1 tab PO DAILY Qty: 90 3RF Stand Alone Forms: Work/School Release Interventions: ED Discharge Assessment Last Done: 03/23/23 17:17 Discharge Date/Time: 03/23/23 17:17
[2023-03-23 13:46] VITALS: BP 124/80; PULSE 87; RESP 19; TEMP 36.7; O2SAT 100; BMI 33.0
[2023-03-23 14:06] LABS: MANUAL DIFF FLAG NO
[2023-03-23 14:13] LABS: Basophils Absolute Auto 0.1 X10*3/uL (0.0-0.2); Basophils Percent Auto 0.7 % (0-2); Eosinophils Absolute Auto 0.6 X10*3/uL (0.0-0.4); Eosinophils Percent Auto 8.2 % (0-4); Hematocrit 42.6 % (37.0-47.0); Hemoglobin 13.5 g/dl (12.0-16.0); Imm Gran Abs Auto 0.02 X10*3/uL (0.00-0.03); Imm Gran Pct Auto 0.3 % (0.0-0.4); Lymphocytes Absolute Auto 2.2 X10*3/uL (1.2-4.9); Mean Corpuscular HGB Conc 31.7 g/dl (31.0-35.0); Mean Corpuscular Volume 88.4 fL (80.0-98.0); Monocytes Absolute Auto 0.4 X10*3/uL (0.1-1.2); Monocytes Percent Auto 5.9 % (2-11); Neutrophils Absolute Auto 4.1 x10*3/uL (2.0-8.3); Neutrophils Percent Auto 54.9 % (45-73); Platelet Count 267 X10*3/uL (160-400); Red Blood Count 4.82 X10*6/uL (4.20-5.50); White Blood Count 7.5 X10*3/uL (4.8-10.8)
[2023-03-23 14:17] LABS: INTERNATIONAL NORM RATIO 0.9 (0.9-1.1); Prothrombin Time 10.7 SEC (10.0-13.1)
[2023-03-23 14:23] LABS: Anion Gap 12 (12-20); Blood Urea Nitrogen 11 mg/dL (9-16); Calcium 9.5 mg/dL (8.4-10.2); Carbon Dioxide 25 mmol/L (22-29); Chloride 108 mmol/L (96-108); Creatinine Clr Calc Pharmacy 109.6; Estimated Glomerular Filt Rate > 60; Glucose Random 105 mg/dL (60-115); Sodium 141 mmol/L (135-145)
[2023-03-23 14:24] LABS: COVID-19 Test Negative (Negative); IDNOW Serial# 08D9AD1C
[2023-03-23 14:31] LABS: Troponin-I High Sensitivity < 2.7 ng/L (<3.5-17.0)
--- NOTE | 2023-03-23 14:31 | PC.NURSE ---
patient a&ox3, lungs upper lobes wheezing, lower lobes diminished, pt speaking in full sentences, vitals within normal limits, call velasco within reach, family at bedside, will continue to monitor.
[2023-03-23] MEDS: predniSONE 20 MG TABLET 40 MG PO (14:40)
--- NOTE | 2023-03-23 14:41 | PC.NURSE ---
pt medicated with Prednisone per order, calling respiratory for updraft treatment
[2023-03-23] MEDS: Albuterol Sulfate (0.083%) 2.5 MG/3 ML VIAL.NEB 5 MG INHALE ×2 (14:51→16:15)
[2023-03-23 14:54] VITALS: PULSE 77; RESP 18; O2SAT 99
--- NOTE | 2023-03-23 16:12 | PC.NURSE ---
pt's lung sounds reassessed, inspiratory/expiratory wheezing located in the left lower lobe noted upon auscultation post prednisone administration, respiratory called for updraft, will continue to monitor.
[2023-03-23 16:15] VITALS: PULSE 95; RESP 18; O2SAT 99
[2023-03-23 16:33] VITALS: BP 128/57; PULSE 118; RESP 20; TEMP 36.6; O2SAT 99
--- NOTE | 2023-03-23 16:33 | PC.NURSE ---
patient a&ox3, vss, pt completed second updraft, lungs still have mild wheezing in upper lobes, family at bedside, will continue to monitor.
== END 2023-03-23 17:17 | disposition home or self-care (01) ==
PROVIDERS: Physician Assistant; Emergency Provider Emergency Medicine
DX: J45.901 Unspecified asthma with (acute) exacerbation (principal); R06.02 Shortness of breath; Z20.822 Contact with and (suspected) exposure to COVID-19
CPT/HCPCS: 71046; 80048; 84484; 85025; 85610; 87635; 94640; 99284

== ENCOUNTER 2023-05-30 16:00 | Outpatient (REF) | payer MEDICAID, SELFPAY | END 2023-05-30 16:01 | disposition home or self-care (01) | LOC: HO.HHCLNP 16:00 | PROVIDERS: Visit Provider Advanced Practice Midwife | DX: R82.90 Unspecified abnormal findings in urine (principal) | CPT/HCPCS: 87086 ==

== ENCOUNTER 2023-06-01 13:19 | Emergency (ER) | payer MEDICAID, SELFPAY ==
--- NOTE | ~2023-06-01 | CT_ITS ---
EXAMINATION: CT ABDOMEN AND PELVIS WITHOUT CONTRAST CLINICAL INFORMATION: Flank pain, UTI, rule out pyelonephritis COMPARISON: None available. TECHNIQUE: Multidetector volumetric imaging was performed from the superior aspect of the liver through the pubic symphysis. Sagittal and coronal reformatted images were obtained on the technologist's workstation. This CT examination was performed using dose optimization techniques as appropriate, variously including the following: *Automated exposure control *Adjustment of mA and/or kV according to patient size (this includes techniques or standardized protocols for targeted exams where dose is matched to indication/reason for exam; i.e. extremities or head) *Use of iterative reconstruction technique DLP: 631 mGy-cm FINDINGS: LUNG BASES: The visualized lung bases are unremarkable. LIVER, GALLBLADDER, AND BILIARY TREE: The liver is normal in size, shape, and attenuation. No focal hepatic lesion or biliary ductal dilatation is present. The gallbladder is unremarkable with no evidence of radiopaque gallstones, gallbladder wall thickening, or obvious pericholecystic inflammatory changes. PANCREAS: Unremarkable. SPLEEN: Unremarkable. ADRENAL GLANDS: Unremarkable. KIDNEYS AND URETERS: The kidneys are normal in size, shape, and attenuation. No hydronephrosis, hydroureter, or calculi seen. No perinephric stranding. BLADDER: The partially distended urinary bladder is unremarkable. GASTROINTESTINAL TRACT: The small and large bowel are unremarkable. The appendix is unremarkable. ABDOMINAL WALL: No significant hernia is appreciated. LYMPH NODES: Normal. VASCULAR: Unremarkable. PELVIC VISCERA: The uterus and adnexa are unremarkable. OSSEOUS STRUCTURES: Unremarkable. CT/CT abdomen pelvis wo IV con IMPRESSION: No CT abnormality to explain the patient's flank pain. No hydronephrosis or renal calculi. Fleischner guidelines were followed.
[2023-06-01 13:29] VITALS: BP 139/91; PULSE 92; RESP 16; TEMP 37.1; O2SAT 97; BMI 35.3
--- NOTE | 2023-06-01 13:29 | ED.GENADULT ---
HPI - General Adult General Chief complaint: Urogenital-Female Stated complaint: UTI Upper Back Pain No Injury Time Seen by Provider: 06/01/23 13:38 Source: patient and family Mode of arrival: ambulatory Limitations: no limitations History of Present Illness HPI narrative: 22 yo female here with urinary frequency, dysuria, foul smelling urine and bilateral upper back pain since Tuesday. No vaginal discharge, rashes, lesions, fevers, vomiting or abdominal pain. No concern for STI Went to [facility] and had urine done Tuesday which showed mixed contamination. Was not treated with any antibiotics. Related Data Home Medications Medication Instructions Recorded Confirmed albuterol sulfate 90 mcg/actuation 2 puff inhalation Q6H PRN 12/22/22 aerosol inhaler Previous Rx's Medication Instructions Recorded acetaminophen 500 mg tablet 1,000 mg PO QID PRN pain #30 tabs 09/30/21 vitamin with calcium 1 tab PO DAILY #90 tabs 12/22/22 no.72-iron 27 mg-folic acid 1 mg tablet ( Vitamins Plus Low Iron) albuterol sulfate 2.5 mg/0.5 mL 5 mg inhalation Q6H PRN shortness 03/23/23 solution for nebulization of breath or wheezing #30 ea nebulizers (AeroEclipse II #1 ea 03/23/23 Nebulizer) prednisone 20 mg tablet 40 mg PO DAILY 4 days #8 tabs 03/23/23 ciprofloxacin HCl 500 mg tablet 500 mg PO Q12H #14 tabs 06/01/23 phenazopyridine 200 mg tablet 200 mg PO TID PRN pain 6 doses #14 06/01/23 (Pyridium) tabs Allergies Allergy/AdvReac Type Severity Reaction Status Date / Time No Known Allergies Allergy Verified 03/23/23 13:45 Review of Systems Review of Systems: Yes all other systems are reviewed and are negative Constitutional: Constitutional: Reports no additional constitutional complaints, Denies body ache(s), Denies chills, Denies fever(s), Denies headache(s) and Denies weakness Eyes: Eyes: Reports no additional eye complaints and Denies change in vision ENT: Reports system reviewed and no additional complaints, except as documented, Denies dizziness, Denies headache(s), Denies nasal congestion, Denies nasal discharge and Denies neck pain Cardiovascular: Cardiovascular: Reports no additional cardiovascular complaints, Denies chest pain, Denies leg edema and Denies dyspnea Respiratory: Respiratory: Reports no additional respiratory complaints, Denies cough and Denies dyspnea Gastrointestinal: Gastrointestinal: Reports no additional gastrointestinal complaints, Denies abdominal pain, Denies diarrhea, Denies nausea and Denies vomiting Genitourinary: Genitourinary: Reports no additional female genitourinary complaints, Reports dysuria, Denies pelvic pain, Reports flank pain, Denies urinary incontinence and Denies vaginal discharge Musculoskeletal: Musculoskeletal: Reports no additional musculoskeletal complaints, Reports back pain, Denies arthralgias, Denies joint swelling, Denies neck pain, Denies numbness and Denies tingling Integumentary/Breasts: Skin/Breast: Reports system reviewed and no additional complaints, except as docu and Denies rash Neurologic: Reports system reviewed and no additional complaints, except as documented, Denies dizziness, Denies headache(s), Denies numbness, Denies tingling and Denies weakness PMFSH Past Medical History Attestation statement: The following information was validated with the patient. Source: old records reviewed and nursing notes reviewed Medical History Asthma Surgical History History of dilatation and curettage Family History Family History Brother Diabetes Maternal Aunt Diabetes Mother Cancer of breast, female, Onset Age: 36 Social History Social History Household Members: Family Housing: Condominium Are you a primary family day care worker to a significant other at home: No Do you presently have visiting nurse or other home services: No Alcohol intake: never Patient Tobacco Use Status: Never used Tobacco Substance Use Type: Marijuana Advance Directives: No Advance Directives Information Provided: No Sexual orientation: Straight/Heterosexual Gender identity: Female Physical Exam ED Vital Signs: Vital Signs - 24 hr 06/01/23 13:29 Temperature 98.7 F Pulse Rate 92 Respiratory Rate 16 Blood Pressure 139/91 H Pulse Oximetry 97 Oxygen Delivery Method Room Air BMI result Body Mass Index 35.3 Const General: cooperative, healthy appearing, comfortable and no acute distress Orientation/consciousness: patient oriented x3 Limitations: no limitations HENMT Head: Yes normal to inspection Ears: hearing grossly normal bilaterally Eyes General: appearance normal, both eyes and all related structures Pupils: Equal, round and reactive pupils present Neck Neck: Yes normal visual inspection and Yes full ROM Chest Chest palpation & inspection: normal inspection of the chest Resp Effort & Inspection: normal respiratory effort Auscultation: clear to auscultation bilaterally Cardio Rate: regular rate Rhythm: regular rhythm Peripheral pulses: Peripheral pulses 2+ throughout GI Inspection: Yes normal to inspection Palpation (GI): Soft to palpation and nontender Auscultation: normal bowel sounds General: Yes CVA tenderness bilateral Back/Spine/Pelvis Back: CVA tenderness Thoracic/Lumbar Spine: thoracic and lumbar spine normal to inspection Skin General skin exam: no rashes or lesions noted Neuro General: patient oriented x3 and moves all extremities Cranial nerves: Yes Equal, round and reactive pupils present Cognition (Neuro): normal cognition Gait exam (Neuro): Normal gait present Course Course Course Narrative: This is an RME: Additional HPI, ROS, PE not included below will be deferred to primary provider. This is a a [id number], with no known medical problems, presenting to the emergency department with a complaint of foul smelling urine and back pain. Concern for UTI. Plan: Labs, UA Reevaluation(s) Reevaluation #1: NO evidence of pyelo/renal colic. Clinically d/t CVAT patient may have early pyelo. Therefore patient will be treated with antibiotics, pyridium prn. Reviewed worrisome signs.symptoms with patient and when to seek additional care. Comfortable with discharge home Medical Decision Making Medical Decision Making [facility] Narrative: 22 yo female here with urinary symptoms, bilateral flank pain x 3 days. No focal andominal pain Will obtain labs, UA, CT A/P Differential Diagnosis Differential Diagnoses: The differential diagnosis associated with the presentation includes renal colic, pyelo, uti Admission/Observation Consideration of admission/observation: Escalation of care including admission/observation considered Lab Data [facility] Lab Attestation statement: I reviewed the patient's lab results. 06/01/23 13:51 06/01/23 13:51 Labs: Lab Results 06/01/23 06/01/23 06/01/23 Range/Units 13:50 13:51 13:51 WBC 6.8 (4.8-10.8) X10*3/uL RBC 4.86 (4.20-5.50) X10*6/uL Hgb 13.6 (12.0-16.0) g/dl Hct 42.3 (37.0-47.0) % MCV 87.0 (80.0-98.0) fL MCH 28.0 (27.0-33.0) pg MCHC 32.2 (31.0-35.0) g/dl RDW 13.0 (11.0-16.0) % Plt Count 228 (160-400) X10*3/uL MPV 9.8 (9.4-12.3) fL Immature Gran % (Auto) 0.3 (0.0-0.4) % Neut % (Auto) 59.1 (45-73) % Lymph % (Auto) 30.4 (20-40) % [place] % (Auto) 6.8 (2-11) % Eos % (Auto) 3.1 (0-4) % Baso % (Auto) 0.3 (0-2) % Lymph # (Auto) 2.1 (1.2-4.9) X10*3/uL [place] # (Auto) 0.5 (0.1-1.2) X10*3/uL Eos # (Auto) 0.2 (0.0-0.4) X10*3/uL Baso # (Auto) 0.0 (0.0-0.2) X10*3/uL Abs Immat Gran (auto) 0.02 (0.00-0.03) X10*3/uL Absolute Neuts (auto) 4.0 (2.0-8.3) x10*3/uL Absolute Nucleated RBC 0.000 (0.0-0.012) X10*3/uL Nucleated RBC % (auto) 0.0 (0.0-0.2) /100WBC Sodium 140 (135-145) mmol/L Potassium 3.8 (3.3-5.1) mmol/L Chloride 108 (96-108) mmol/L Carbon Dioxide 27 (22-29) mmol/L Anion Gap 9 L (12-20) BUN 11 (9-16) mg/dL Creatinine 0.89 (0.5-1.4) mg/dL Estim Creat Clear Calc 109.7 Estimated GFR > 60 Random Glucose 109 (60-115) mg/dL Calcium 9.5 (8.4-10.2) mg/dL Total Bilirubin 0.6 (0.0-1.0) mg/dL Direct Bilirubin 0.3 (0.0-0.5) mg/dL AST 14 (5-31) U/L ALT 10 (0-31) U/L Alkaline Phosphatase 51 (39-117) U/L Total Protein 7.1 (6.5-8.0) g/dL Albumin 4.2 (3.5-5.0) g/dL Urine Color Urine Appearance Urine pH (5.0-9.0) Ur Specific [place] (1.005-1.025) Urine Protein (Neg-Trace) mg/dL Urine Glucose (UA) (Negative) mg/dL Urine Ketones (Negative) mg/dL Urine Blood (Negative) Urine Nitrite (Negative) Ur Leukocyte Esterase (Negative) Urine RBC (0-2) /HPF Urine WBC (0-5) /HPF Ur Squamous Epith Cells (0-2) /HPF Urine Bacteria (None Seen) Hyaline Casts (0-2) /LPF Urine Test NEGATIVE (NEGATIVE) 06/01/23 Range/Units 13:51 WBC (4.8-10.8) X10*3/uL RBC (4.20-5.50) X10*6/uL Hgb (12.0-16.0) g/dl Hct (37.0-47.0) % MCV (80.0-98.0) fL MCH (27.0-33.0) pg MCHC (31.0-35.0) g/dl RDW (11.0-16.0) % Plt Count (160-400) X10*3/uL MPV (9.4-12.3) fL Immature Gran % (Auto) (0.0-0.4) % Neut % (Auto) (45-73) % Lymph % (Auto) (20-40) % [place] % (Auto) (2-11) % Eos % (Auto) (0-4) % Baso % (Auto) (0-2) % Lymph # (Auto) (1.2-4.9) X10*3/uL [place] # (Auto) (0.1-1.2) X10*3/uL Eos # (Auto) (0.0-0.4) X10*3/uL Baso # (Auto) (0.0-0.2) X10*3/uL Abs Immat Gran (auto) (0.00-0.03) X10*3/uL Absolute Neuts (auto) (2.0-8.3) x10*3/uL Absolute Nucleated RBC (0.0-0.012) X10*3/uL Nucleated RBC % (auto) (0.0-0.2) /100WBC Sodium (135-145) mmol/L Potassium (3.3-5.1) mmol/L Chloride (96-108) mmol/L Carbon Dioxide (22-29) mmol/L Anion Gap (12-20) BUN (9-16) mg/dL Creatinine (0.5-1.4) mg/dL Estim Creat Clear Calc Estimated GFR Random Glucose (60-115) mg/dL Calcium (8.4-10.2) mg/dL Total Bilirubin (0.0-1.0) mg/dL Direct Bilirubin (0.0-0.5) mg/dL AST (5-31) U/L ALT (0-31) U/L Alkaline Phosphatase (39-117) U/L Total Protein (6.5-8.0) g/dL Albumin (3.5-5.0) g/dL Urine Color Yellow Urine Appearance Cloudy Urine pH 7.5 (5.0-9.0) Ur Specific [place] 1.025 (1.005-1.025) Urine Protein Trace (Neg-Trace) mg/dL Urine Glucose (UA) Negative (Negative) mg/dL Urine Ketones Trace (Negative) mg/dL Urine Blood Large (3+) H (Negative) Urine Nitrite Positive H (Negative) Ur Leukocyte Esterase Trace H (Negative) Urine RBC 11-20 H (0-2) /HPF Urine WBC 0-5 (0-5) /HPF Ur Squamous Epith Cells 6-10 (0-2) /HPF Urine Bacteria 4+ (None Seen) Hyaline Casts 0-2 (0-2) /LPF Urine Test (NEGATIVE) Independent Interpretation I performed an independent interpretation of an: CT Scan Interpretation: I independently reviewed the CT scan and agree with rad report Radiology Impression Discussion of test interpretation with radiology: I have reviewed the radiologist's reading. Radiologist Impression: [address] [address] [address] Scan Report Signed Patient: Mary Marin MR#: [id number] : 2000 Acct:[id number] Age/Sex: 22 / F ADM Date: 06/01/23 Loc: HO.ED Attending Dr: Ordering Physician: Loretta Juarez NP Date of Service: 06/01/23 Procedure(s): CT abdomen pelvis wo IV con Accession Number(s): [id number] cc: Loretta Juarez NP~ EXAMINATION: CT ABDOMEN AND PELVIS WITHOUT CONTRAST? CLINICAL INFORMATION: Flank pain, UTI, rule out pyelonephritis? COMPARISON: None available. TECHNIQUE: Multidetector volumetric imaging was performed from the superior aspect of the liver through the pubic symphysis. Sagittal and coronal reformatted images were obtained on the technologist's workstation.? This CT examination was performed using dose optimization techniques as appropriate, variously including the following: *Automated exposure control *Adjustment of mA and/or kV according to patient size (this includes techniques or standardized protocols for targeted exams where dose is matched to indication/reason for exam; i.e. extremities or head) *Use of iterative reconstruction technique DLP: 631 mGy-cm FINDINGS: LUNG BASES: The visualized lung bases are unremarkable.? LIVER, GALLBLADDER, AND BILIARY TREE: The liver is normal in size, shape, and attenuation. No focal hepatic lesion or biliary ductal dilatation is present. The gallbladder is unremarkable with no evidence of radiopaque gallstones, gallbladder wall thickening, or obvious pericholecystic inflammatory changes.? PANCREAS: Unremarkable.? SPLEEN: Unremarkable.? ADRENAL GLANDS: Unremarkable.? KIDNEYS AND URETERS: The kidneys are normal in size, shape, and attenuation. No hydronephrosis, hydroureter, or calculi seen. No perinephric stranding. ? BLADDER: The partially distended urinary bladder is unremarkable.? GASTROINTESTINAL TRACT: The small and large bowel are unremarkable. The appendix is unremarkable.? ABDOMINAL WALL: No significant hernia is appreciated.? LYMPH NODES: Normal. VASCULAR: Unremarkable. PELVIC VISCERA: The uterus and adnexa are unremarkable.? OSSEOUS STRUCTURES: Unremarkable.? CT/CT abdomen pelvis wo IV con IMPRESSION: No CT abnormality to explain the patient's flank pain. No hydronephrosis or renal calculi. ? Fleischner guidelines were followed. Discharge Plan Discharge Clinical Impression: Pyelonephritis Patient Disposition: Home, Self-Care Instructions: Kidney Infection (ED) Additional Instructions: Start with clear liquids then advance diet as tolerared Take motin/tylenol for pain as needed Increase fluids Return for fever, shortness of breath, worsening pain, intractable vomiting Prescriptions: New ciprofloxacin HCl 500 mg tablet 500 mg PO Q12H Qty: 14 0RF phenazopyridine [Pyridium] 200 mg tablet 200 mg PO TID PRN (Reason: pain) Qty: 14 0RF No Action acetaminophen 500 mg tablet 1,000 mg PO QID PRN (Reason: pain) Qty: 30 0RF prednisone 20 mg tablet 40 mg PO DAILY 4 Days Qty: 8 0RF (DME) nebulizers [AeroEclipse II Nebulizer] Misc See Rx Instructions .Route Qty: 1 0RF Rx Instructions: As directed albuterol sulfate 2.5 mg/0.5 mL solution for nebulization 5 mg inhalation Q6H PRN (Reason: shortness of breath or wheezing) Qty: 30 0RF albuterol sulfate 90 mcg/actuation HFA aerosol inhaler 2 puff inhalation Q6H PRN Vitamin Plus Low Iron 27 mg iron- 1 mg tablet 1 tab PO DAILY Qty: 90 3RF Referrals: [facility] [Primary Care Provider] - 1 week Stand Alone Forms: Work/School Release Interventions: ED Discharge Assessment Last Done: 06/01/23 15:42 Discharge Date/Time: 06/01/23 15:43
[2023-06-01 13:56] LABS: MANUAL DIFF FLAG NO
[2023-06-01 13:58] LABS: Basophils Percent Auto 0.3 % (0-2); Eosinophils Absolute Auto 0.2 X10*3/uL (0.0-0.4); Eosinophils Percent Auto 3.1 % (0-4); Hematocrit 42.3 % (37.0-47.0); Hemoglobin 13.6 g/dl (12.0-16.0); Imm Gran Abs Auto 0.02 X10*3/uL (0.00-0.03); Imm Gran Pct Auto 0.3 % (0.0-0.4); Lymphocytes Absolute Auto 2.1 X10*3/uL (1.2-4.9); Lymphocytes Percent Auto 30.4 % (20-40); Mean Corpuscular HGB Conc 32.2 g/dl (31.0-35.0); Mean Platelet Volume 9.8 fL (9.4-12.3); Monocytes Absolute Auto 0.5 X10*3/uL (0.1-1.2); Monocytes Percent Auto 6.8 % (2-11); Neutrophils Percent Auto 59.1 % (45-73); Platelet Count 228 X10*3/uL (160-400); Red Blood Count 4.86 X10*6/uL (4.20-5.50); White Blood Count 6.8 X10*3/uL (4.8-10.8)
[2023-06-01 14:00] LABS: Appearance Urine Cloudy; Color Urine Yellow; Glucose Urine UA Negative (Negative); Leukocyte Esterase Urine Trace (Negative); Nitrite Urine Positive (Negative); PH 7.5 (5.0-9.0); Specific Gravity - Urine 1.025 (1.005-1.025); UMIC TRIGGER UACC YES; Urine Blood Large (3+) (Negative); Urine Ketones Trace mg/dL (Negative); Urine Protein Trace mg/dL (Neg-Trace)
[2023-06-01 14:02] LABS: UPreg QC Valid YES; Urine Pregnancy NEGATIVE (NEGATIVE)
[2023-06-01 14:05] LABS: Bacteria Urine 4+ (None Seen); Hyaline Casts Urine 0-2 /LPF (0-2); UACC Culture Trigger YES; WBC Urine 0-5 /HPF (0-5)
[2023-06-01 14:37] LABS: Alanine Aminotransferase 10 U/L (0-31); Albumin Level 4.2 g/dL (3.5-5.0); Alkaline Phosphatase 51 U/L (39-117); Anion Gap 9 (12-20); Aspartate Amino Transferase 14 U/L (5-31); Bilirubin Direct 0.3 mg/dL (0.0-0.5); Bilirubin Total 0.6 mg/dL (0.0-1.0); Blood Urea Nitrogen 11 mg/dL (9-16); Calcium 9.5 mg/dL (8.4-10.2); Carbon Dioxide 27 mmol/L (22-29); Chloride 108 mmol/L (96-108); Creatinine Clr Calc Pharmacy 109.7; Estimated Glomerular Filt Rate > 60; Glucose Random 109 mg/dL (60-115); Potassium 3.8 mmol/L (3.3-5.1); Sodium 140 mmol/L (135-145); Total Protein 7.1 g/dL (6.5-8.0)
== END 2023-06-01 15:43 | disposition home or self-care (01) ==
PROVIDERS: Physician Assistant Medical; Emergency Provider Student in an Organized Health Care Education/Training Program
DX: N12 Tubulo-interstitial nephritis, not specified as acute or chronic (principal); B96.20 Unspecified Escherichia coli [E. coli] as the cause of diseases classified elsewhere
CPT/HCPCS: 36415; 74176; 80048; 80076; 81001; 81003; 81025; 85025; 87086; 87088; 87186; 99282; 99284

== ENCOUNTER 2023-08-22 12:42 | Outpatient (REF) | payer MEDICAID, SELFPAY ==
[2023-08-22 13:20] LABS: MANUAL DIFF FLAG NO
[2023-08-22 13:28] LABS: Basophils Absolute Auto 0.1 X10*3/uL (0.0-0.2); Basophils Percent Auto 0.5 % (0-2); Eosinophils Absolute Auto 0.3 X10*3/uL (0.0-0.4); Eosinophils Percent Auto 3.3 % (0-4); Hematocrit 43.5 % (37.0-47.0); Hemoglobin 13.8 g/dl (12.0-16.0); Imm Gran Abs Auto 0.04 X10*3/uL (0.00-0.03); Imm Gran Pct Auto 0.4 % (0.0-0.4); Lymphocytes Absolute Auto 2.6 X10*3/uL (1.2-4.9); Lymphocytes Percent Auto 27.9 % (20-40); Mean Corpuscular HGB Conc 31.7 g/dl (31.0-35.0); Mean Corpuscular Hemoglobin 28.3 pg (27.0-33.0); Mean Corpuscular Volume 89.1 fL (80.0-98.0); Mean Platelet Volume 10.3 fL (9.4-12.3); Monocytes Absolute Auto 0.6 X10*3/uL (0.1-1.2); Neutrophils Absolute Auto 5.7 x10*3/uL (2.0-8.3); Neutrophils Percent Auto 61.9 % (45-73); Platelet Count 289 X10*3/uL (160-400); Red Blood Count 4.88 X10*6/uL (4.20-5.50); Red Cell Distribution Width 13.2 % (11.0-16.0); White Blood Count 9.2 X10*3/uL (4.8-10.8)
[2023-08-22 13:44] LABS: Estimated Average Glucose 111 mg/dL; Hemoglobin A1c % 5.5 % (<6.0)
[2023-08-22 14:37] LABS: Alanine Aminotransferase 13 U/L (0-31); Albumin Level 4.2 g/dL (3.5-5.0); Alkaline Phosphatase 66 U/L (39-117); Anion Gap 9 (12-20); Aspartate Amino Transferase 16 U/L (5-31); Bilirubin Total 0.3 mg/dL (0.0-1.0); Blood Urea Nitrogen 10 mg/dL (9-16); Calcium 9.3 mg/dL (8.4-10.2); Carbon Dioxide 28 mmol/L (22-29); Chloride 106 mmol/L (96-108); Cholesterol 157 mg/dL (<200); Estimated Glomerular Filt Rate > 60; Glucose Random 107 mg/dL (60-115); HDL Cholesterol 59 mg/dL (>40); LDL Cholesterol Calculated 85 mg/dL (<100); Potassium 3.9 mmol/L (3.3-5.1); Sodium 139 mmol/L (135-145); TSH reflex Free T4 1.73 uIU/mL (0.32-4.0); Total Protein 7.6 g/dL (6.5-8.0); Triglycerides 68 mg/dL (<150); Vitamin D 25-OH Total 14.8 ng/mL (>30)
== END 2023-08-22 12:43 | disposition home or self-care (01) ==
LOC: HO.HHCL 12:42
PROVIDERS: Visit Provider Registered Nurse
DX: E66.09 Other obesity due to excess calories (principal); Z68.36 Body mass index [BMI] 36.0-36.9, adult
CPT/HCPCS: 36415; 80053; 80061; 82306; 83036; 84443; 85025

== ENCOUNTER 2023-10-02 01:12 | Emergency (ER) | payer MEDICAID, SELFPAY ==
[2023-10-02 01:36] VITALS: BP 136/98; PULSE 111; O2SAT 99
[2023-10-02 01:38] VITALS: BP 122/75; PULSE 99; RESP 18; TEMP 37.2; O2SAT 98; BMI 31.9
== END 2023-10-02 07:04 | disposition left against medical advice (07) ==
PROVIDERS: Emergency Provider Emergency Medicine
DX: S09.90XA Unspecified injury of head, initial encounter (principal); X58.XXXA Exposure to other specified factors, initial encounter; Y93.9 Activity, unspecified; Y92.9 Unspecified place or not applicable; Y99.9 Unspecified external cause status
CPT/HCPCS: 99281

== ENCOUNTER 2023-11-16 12:20 | Outpatient (REF) | payer MEDICAID, SELFPAY ==
[2023-11-16 14:46] LABS: CT PCR NOT DETECTED (Not Detect.); NG PCR NOT DETECTED (Not Detect.)
[2023-11-16 16:17] LABS: Alanine Aminotransferase 12 U/L (0-31); Albumin Level 4.1 g/dL (3.5-5.0); Alkaline Phosphatase 61 U/L (39-117); Anion Gap 9 (12-20); Aspartate Amino Transferase 16 U/L (5-31); Bilirubin Total 0.4 mg/dL (0.0-1.0); Blood Urea Nitrogen 10 mg/dL (9-16); Calcium 9.4 mg/dL (8.4-10.2); Carbon Dioxide 27 mmol/L (22-29); Chloride 109 mmol/L (96-108); Estimated Glomerular Filt Rate > 60; Glucose Random 95 mg/dL (60-115); Potassium 4.2 mmol/L (3.3-5.1); Sodium 141 mmol/L (135-145); Total Protein 7.4 g/dL (6.5-8.0)
[2023-11-16 16:34] LABS: Vitamin D 25-OH Total 14.3 ng/mL (>30)
[2023-11-17 03:48] LABS: Syphilis Screen Nonreactive (Nonreactive)
[2023-11-17 04:05] LABS: HBS Num1 0.65 mIU/mL (0-7.99); HBc Num1 0.06 S/CO (0.00-0.79); HIV AB/AG Nonreactive (Nonreactive); HIV Num 1 0.05 S/CO (0.00-0.99); Hepatitis B Core Antibody Nonreactive (Nonreactive); Hepatitis B Surface Antigen Negative (Negative); ~HepC Num1 0.11 S/CO (0.00-0.79); ~Hepatitis B Surface Antibody NONREACTIVE (Nonreactive); ~Hepatitis C Antibody Nonreactive (Nonreactive)
[2023-11-18 19:32] LABS: TS Negative Control Passed; TS Panel A 0; TS Panel B 0; TS Positive Control Passed; TSpotTB Negative (Negative)
== END 2023-11-16 12:21 | disposition home or self-care (01) ==
LOC: HO.HHCL 12:20
PROVIDERS: Visit Provider Student in an Organized Health Care Education/Training Program
DX: Z00.00 Encounter for general adult medical examination without abnormal findings (principal)
CPT/HCPCS: 0353U; 36415; 80053; 82306; 86481; 86704; 86706; 86780; 86803; 87340; 87389

== ENCOUNTER 2023-11-24 15:29 | Emergency (ER) | payer MEDICAID, SELFPAY ==
--- NOTE | ~2023-11-24 | CT_ITS ---
EXAMINATION: CT HEAD WITHOUT CONTRAST CLINICAL INFORMATION: Trauma. COMPARISON: None available. TECHNIQUE: Contiguous axial imaging was performed from the skull base to vertex without intravenous administration of contrast. This CT examination was performed using dose optimization techniques as appropriate, variously including the following: *Automated exposure control *Adjustment of mA and/or kV according to patient size (this includes techniques or standardized protocols for targeted exams where dose is matched to indication/reason for exam; i.e. extremities or head) *Use of iterative reconstruction technique DLP: 569 mGy-cm FINDINGS: No intra or extra-axial fluid collection or hemorrhage, mass, or mass effect. Calvarium intact. CT/CT head/brain wo IV con IMPRESSION: No acute intracranial pathology.
[2023-11-24 15:47] VITALS: BP 135/73; PULSE 115; O2SAT 99
[2023-11-24 16:10] VITALS: BP 125/77; PULSE 98; RESP 18; TEMP 36.3; O2SAT 97; BMI 35.4
--- NOTE | 2023-11-24 16:10 | ED.HEATRA ---
HPI - Head Injury General Chief complaint: Head Injury Stated complaint: Head pain after headboard fell on head Time Seen by Provider: 11/24/23 17:33 Source: patient Mode of arrival: ambulatory Limitations: no limitations History of Present Illness HPI Narrative: 23 yo female previously healthy here with complaints of posterior head pain after a wooden headboard fell on her head. No LOC. NO nausea/vomiting, dizziness, neck pain, back pain. NO AC therapy use. Related Data Home Medications Medication Instructions Recorded Confirmed albuterol sulfate 90 mcg/actuation 2 puff inhalation Q6H PRN 12/22/22 aerosol inhaler Previous Rx's Medication Instructions Recorded acetaminophen 500 mg tablet 1,000 mg (2 x 500 mg) PO QID PRN 09/30/21 pain #30 tabs vitamin with calcium 1 tab PO DAILY #90 tabs 12/22/22 no.72-iron 27 mg-folic acid 1 mg tablet ( Vitamins Plus Low Iron) albuterol sulfate 2.5 mg/0.5 mL 5 mg inhalation Q6H PRN shortness 03/23/23 solution for nebulization of breath or wheezing #30 ea nebulizers (AeroEclipse II #1 ea 03/23/23 Nebulizer) prednisone 20 mg tablet 40 mg (2 x 20 mg) PO DAILY 4 days 03/23/23 #8 tabs ciprofloxacin HCl 500 mg tablet 500 mg PO Q12H #14 tabs 06/01/23 phenazopyridine 200 mg tablet 200 mg PO TID PRN pain 6 doses #14 06/01/23 (Pyridium) tabs Allergies Allergy/AdvReac Type Severity Reaction Status Date / Time shrimp Allergy Anaphylaxis Verified 11/24/23 16:10 Review of Systems Review of Systems: Yes all other systems are reviewed and are negative Constitutional: Constitutional: Reports no additional constitutional complaints, Denies body ache(s), Denies chills, Denies fever(s), Reports headache(s) and Denies weakness Eyes: Eyes: Reports no additional eye complaints and Denies change in vision ENT: Reports system reviewed and no additional complaints, except as documented, Denies dizziness, Reports headache(s), Denies nasal congestion, Denies nasal discharge and Denies neck pain Cardiovascular: Cardiovascular: Reports no additional cardiovascular complaints, Denies chest pain, Denies leg edema and Denies dyspnea Respiratory: Respiratory: Reports no additional respiratory complaints, Denies cough and Denies dyspnea Gastrointestinal: Gastrointestinal: Reports no additional gastrointestinal complaints, Denies abdominal pain, Denies diarrhea, Denies nausea and Denies vomiting Genitourinary: Genitourinary: Reports no additional female genitourinary complaints and Denies urinary incontinence Musculoskeletal: Musculoskeletal: Reports no additional musculoskeletal complaints, Denies back pain, Denies arthralgias, Denies joint swelling, Denies neck pain, Denies numbness and Denies tingling Integumentary/Breasts: Skin/Breast: Reports system reviewed and no additional complaints, except as docu and Denies rash Neurologic: Reports system reviewed and no additional complaints, except as documented, Denies Abnormal speech present, Denies dizziness, Reports headache(s), Denies numbness, Denies tingling and Denies weakness PMFSH Past Medical History Attestation statement: The following information was validated with the patient. Source: old records reviewed and nursing notes reviewed Medical History Asthma Surgical History History of dilatation and curettage Family History Family History Brother Diabetes Maternal Aunt Diabetes Mother Cancer of breast, female, Onset Age: 36 Social History Social History Household Members: Family Housing: Condominium Are you a primary child adolescent care to a significant other at home: No Do you presently have visiting nurse or other home services: No Alcohol intake: never Patient Tobacco Use Status: Never used Tobacco Substance Use Type: Marijuana Advance Directives: No Advance Directives Information Provided: No Sexual orientation: Straight/Heterosexual Gender identity: Female Physical Exam Vital Signs: Vital Signs: Last Vital Signs Temp 97.3 F 11/24/23 16:10 Pulse 98 11/24/23 16:10 Resp 18 11/24/23 16:10 BP 125/77 11/24/23 16:10 Pulse Ox 97 11/24/23 16:10 O2 Del Method Room Air 11/24/23 16:10 BMI result Body Mass Index 35.4 Const: General: cooperative, healthy appearing, comfortable and no acute distress Orientation/consciousness: patient oriented x3 Limitations: no limitations HEENT: Head: Yes normal to inspection, No Mcknight's sign and No raccoon eyes Ears: hearing grossly normal bilaterally and TM's normal bilaterally General nose exam: Normal external nose present Face and sinus: Yes normal facial exam Mouth: Normal oral and palatal mucosa present Throat: Yes posterior oropharynx normal Eyes: General: appearance normal, both eyes and all related structures Pupils: Equal, round and reactive pupils present Neck: Neck: Yes normal visual inspection, Yes full ROM, Yes no lymphadenopathy and Yes no meningeal signs Chest: Chest palpation & inspection: normal inspection of the chest Resp: Effort & Inspection: normal respiratory effort Auscultation: clear to auscultation bilaterally Cardio: Rate: regular rate Rhythm: regular rhythm Peripheral pulses: Peripheral pulses 2+ throughout GI: Inspection: Yes normal to inspection Palpation (GI): Soft to palpation and nontender Auscultation: normal bowel sounds Back/Spine/Pelvis: Thoracic/Lumbar Spine: thoracic and lumbar spine normal to inspection Skin: General skin exam: no rashes or lesions noted Neuro: General: patient oriented x3, no meningeal signs, no focal motor deficits and normal sensation to monofilament Cranial nerves: Yes Equal, round and reactive pupils present Cognition (Neuro): normal cognition Speech: No Abnormal speech present Gait exam (Neuro): Normal gait present Motor exam (neuro): 5/5 motor strength present throughout Extrem: General: Yes normal to inspection Course Course Course Narrative: This is a rapid medical exam. Deferred additional HPI, ROS, PE to primary provider. 23 yo female with history of asthma here with head injury to posterior head after a wooden headboard fell on the back of her head. No LOC. NO AC therapy use. +headache. No other symptoms. LMP 2/5. Not concerned for Will check ct head VSS Medical Decision Making Medical Decision Making MDM Narrative: 23 yo female previously healthy here with complaints of posterior head pain after a wooden headboard fell on her head. No LOC. NO nausea/vomiting, dizziness, neck pain, back pain. NO AC therapy use. Normal neuro with no focal deficits. Will check CT head Differential Diagnosis Differential Diagnoses: The differential diagnosis associated with the presentation includes ich, skull fracture, contusion, concussion Admission/Observation Consideration of admission/observation: Escalation of care including admission/observation considered Independent Interpretation I performed an independent interpretation of an: CT Scan Interpretation: I independetely reviewed the x-ray and agree with rad report Radiology Impression Discussion of test interpretation with radiology: I have reviewed the radiologist's reading. Radiologist Impression: [address] [address] [address] Scan Report Signed Patient: Mary Marin MR#: [id number] : 2000 Acct:[id number] Age/Sex: 23 / F ADM Date: 11/24/23 Loc: HO.ED Attending Dr: Ordering Physician: Loretta Juarez NP Date of Service: 11/24/23 Procedure(s): CT head/brain wo IV con Accession Number(s): [id number] cc: Loretta Juarez NP~ EXAMINATION: CT HEAD WITHOUT CONTRAST CLINICAL INFORMATION: Trauma. COMPARISON: None available. TECHNIQUE: Contiguous axial imaging was performed from the skull base to vertex without intravenous administration of contrast. This CT examination was performed using dose optimization techniques as appropriate, variously including the following: *Automated exposure control *Adjustment of mA and/or kV according to patient size (this includes techniques or standardized protocols for targeted exams where dose is matched to indication/reason for exam; i.e. extremities or head) *Use of iterative reconstruction technique DLP: 569 mGy-cm FINDINGS: No intra or extra-axial fluid collection or hemorrhage, mass, or mass effect. Calvarium intact. CT/CT head/brain wo IV con IMPRESSION: No acute intracranial pathology. Independent Historian Clinical information obtained from an independent historian. History obtained from or confirmed by: Friend and EMS Discharge Plan Discharge Clinical Impression: Closed head injury Patient Disposition: Home, Self-Care Instructions: Head Injury (ED) Additional Instructions: Rest Limit screen time Take motrin or tylenol for pain as needed Return for any worsening symptoms Prescriptions: No Action acetaminophen 500 mg tablet 1,000 mg PO QID PRN (Reason: pain) Qty: 30 0RF ciprofloxacin HCl 500 mg tablet 500 mg PO Q12H Qty: 14 0RF phenazopyridine [Pyridium] 200 mg tablet 200 mg PO TID PRN (Reason: pain) Qty: 14 0RF prednisone 20 mg tablet 40 mg PO DAILY 4 Days Qty: 8 0RF (DME) nebulizers [AeroEclipse II Nebulizer] Misc See Rx Instructions .Route Qty: 1 0RF Rx Instructions: As directed albuterol sulfate 2.5 mg/0.5 mL solution for nebulization 5 mg inhalation Q6H PRN (Reason: shortness of breath or wheezing) Qty: 30 0RF albuterol sulfate 90 mcg/actuation HFA aerosol inhaler 2 puff inhalation Q6H PRN Vitamin Plus Low Iron 27 mg iron- 1 mg tablet 1 tab PO DAILY Qty: 90 3RF Referrals: ED Physician,Generic [Physician] - 1 week Interventions: ED Discharge Assessment Last Done: 11/24/23 18:03 Discharge Date/Time: 11/24/23 18:04
== END 2023-11-24 18:04 | disposition home or self-care (01) ==
PROVIDERS: Emergency Provider Emergency Medicine
DX: S09.90XA Unspecified injury of head, initial encounter (principal); R51.9 Headache, unspecified; Y29.XXXA Contact with blunt object, undetermined intent, initial encounter; Y93.9 Activity, unspecified; Y92.003 Bedroom of unspecified non-institutional (private) residence as the place of occurrence of the external cause; Y99.8 Other external cause status
CPT/HCPCS: 70450; 99282; 99284

== ENCOUNTER 2023-12-27 13:28 | Outpatient (AMB) | payer MEDICAID, SELFPAY ==
--- NOTE | 2023-12-27 13:27 | A.OFFVIS_ITS ---
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 Doing well with concerns: unable to conceive since April, off BC since. Menses skipped in the past, regular since April. She tries to eat healthy and stays active with exercise. Currently taking Trulicity for weight loss. She denies vaginal itching and irritation. Denies family history of ovarian or colon cancer. FH breast cancer-mom, aged 36. Planning to pursue BRAC testing at [facility] with her PCP. Last pap smear 2022, negative. [facility] Medical History Asthma Surgical History History of dilatation and curettage Family History Brother Diabetes Maternal Aunt Diabetes Mother Cancer of breast, female, Onset Age: 36 Social History Household Members: Family Both parents involved: Yes Caregiver staying overnight: No Housing: Condominium Are you a primary critical care technician to a significant other at home: No Do you presently have visiting nurse or other home services: No 75 years or older and lives alone: No Alcohol intake: never Patient Tobacco Use Status: Never used Tobacco Substance Use Type: Marijuana Sexual orientation: Straight/Heterosexual Gender identity: Female Female Reproductive History Menstrual Age of Menarche: 12 Duration of menses: 3-5 days Date of last menstrual period: 12/01/23 control method: none Total pregnancies: 1 Number of Living Children: 0 Ab spontaneous: 1 Date of last pap smear: 12/22/22 (neg) Review of Systems Const All systems reviewed & are unremarkable except as noted in HPI and below Reports as per HPI Eyes Reports no additional complaints ENT Reports no additional complaints Card Reports no additional complaints Resp Reports no additional complaints GI Reports as per HPI and Reports no additional complaints Reports as per HPI Musc Reports no additional complaints Skin/Breast Reports as per HPI Neuro Reports no additional complaints Psych Reports no additional complaints Endo Reports no additional complaints Clovis/Lymph Reports no additional complaints Aller/Immun Reports no additional complaints Physical Exam Vital Signs: Last Vital Signs BP 106/72 12/27/23 13:32 BMI result Body Mass Index 35.0 Const General: cooperative, healthy appearing, no acute distress, well developed and alert Orientation/consciousness: patient oriented x3 HEENT Head: Yes normal to inspection Eyes General: appearance normal, both eyes and all related structures Neck Neck: Yes normal visual inspection Thyroid: Thyroid normal Chest Chest palpation & inspection: normal inspection of the chest and other (no puckering, dimpling, peau de orange, retraction, discharge, masses) Breast/axilla inspection: normal inspection of the breasts Breast/axilla palpation: normal palpation of the breasts Resp Effort & Inspection: normal respiratory effort GI Inspection: Yes normal to inspection Palpation (GI): Soft to palpation Rectal Exam - Female: deferred General: Yes bladder normal to palpation External Female Exam: normal external appearance and normal appearance of the urethra Speculum Exam - Vagina: normal appearance of the vagina, normal palpation and normal vaginal discharge Speculum Exam - Cervix: normal appearance of the cervix and normal palpation Bimanual exam- vagina & uterus: normal bimanual exam, normal palpation, uterine size normal, bladder normal to palpation, normal palpation and non-tender Bimanual Exam- Adnexa, other: no masses Skin General skin exam: no rashes or lesions noted Rashes: no rashes Neuro General: patient oriented x3 Cognition (Neuro): normal cognition Extrem General: Yes normal to inspection Psych Attitude: cooperative Thought process: Normal thought process present Results AMB Test Urine AMB Test Urine Negative Last Edit by MEME Fleming on 12/27/23 14:09 Results Reviewed Results Reviewed: Laboratory Last Values [facility]st Clinic Negative 12/27/23 14:08 Assessment & Plan Assessment & Plan (1) Encounter for well woman exam with routine gynecological exam: Code(s): Z01.419 - Encounter for gynecological examination (general) (routine) without abnormal findings Plan Discussed: Current recommendations for pap smears per ASCCP guidelines. Breast awareness and periodic breast exams. Maintain a healthy lifestyle including a well balanced diet and routine exercise. Continue with vitamins for the benefit of folic acid. Use condoms for STI and prevention. Advised not to conceive while on Trulicity if possible talk with her PCP regarding stopping. Or pausing on fertility attempts for now until goals for weight are nearing. BV panel for Trichomonas screening today. Discussed infertility multiple causes, including stress. Advised stress reduction. If late for menses do a home test, if positive follow up in office for further evaluation. Patient verbalizes understanding and agrees to the plan of care. She was given opportunity to ask questions and all questions were answered to the best of my a bility. 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 This note is constructed using voice recognition software. While every effort has been made to ensure accuracy, coding educator errors may have been included. Orders: Orders Bacterial Vaginosis Panel Today N89.8 - Other specified noninflammatory disorders of vagina AMB HCG Urine Test Today Z32.02 - Encounter for test, result negative Coding Level of Care Code Est Pt Prev Care 18-39y(62274) Diagnoses Encounter for well woman exam with routine gynecological exam Z01.419
[2023-12-27 13:32] VITALS: BP 106/72; BMI 35.0
== END 2023-12-27 14:10 | disposition home or self-care (01) ==
PROVIDERS: Visit Provider Advanced Practice Midwife
DX: Z01.419 Encounter for gynecological examination (general) (routine) without abnormal findings (principal); Z32.02 Encounter for pregnancy test, result negative
CPT/HCPCS: 99395

== ENCOUNTER 2023-12-27 13:28 | Outpatient (REF) | payer MEDICAID, SELFPAY ==
[2023-12-28 10:19] LABS: BV Int Neg Control Negative (Negative); BV Int Pos Control Positive (Positive)
== END 2023-12-27 13:29 | disposition home or self-care (01) ==
LOC: HO.LAB 13:28
PROVIDERS: Visit Provider Advanced Practice Midwife
DX: Z01.419 Encounter for gynecological examination (general) (routine) without abnormal findings (principal); N89.8 Other specified noninflammatory disorders of vagina
CPT/HCPCS: 81025; 87480; 87510; 87660; 99395

== ENCOUNTER 2024-01-19 19:42 | Emergency (ER) | payer MEDICAID, SELFPAY ==
[2024-01-19 20:22] VITALS: BP 118/86; PULSE 82; RESP 16; TEMP 36.2; O2SAT 98; BMI 30.8
--- NOTE | 2024-01-19 20:28 | ED.GENADULT ---
HPI - General Adult General Chief complaint: Urogenital-Female Stated complaint: ? UTI Related Data Home Medications ?Medication ?Instructions ?Recorded ?Confirmed albuterol sulfate 90 mcg/actuation 2 puff inhalation Q6H PRN 12/22/22 aerosol inhaler dulaglutide 3 mg/0.5 mL 3 mg subcut QWEEK 12/27/23 subcutaneous pen injector (Trulicity) Previous Rx's ?Medication ?Instructions ?Recorded vitamin with calcium 1 tab PO DAILY #90 tabs 12/22/22 no.72-iron 27 mg-folic acid 1 mg tablet ( Vitamins Plus Low Iron) albuterol sulfate 2.5 mg/0.5 mL 5 mg inhalation Q6H PRN shortness 03/23/23 solution for nebulization of breath or wheezing #30 ea nebulizers (AeroEclipse II #1 ea 03/23/23 Nebulizer) Allergies Allergy/AdvReac Type Severity Reaction Status Date / Time shrimp Allergy Anaphylaxis Verified 01/19/24 20:25 [facility] Past Medical History Medical History Asthma Surgical History History of dilatation and curettage Family History Family History Brother Diabetes Maternal Aunt Diabetes Mother Cancer of breast, female, Onset Age: 36 Social History Social History Household Members: Family Housing: Condominium Are you a primary pediatric care coordinator to a significant other at home: No Do you presently have visiting nurse or other home services: No Alcohol intake: never Patient Tobacco Use Status: Never used Tobacco Substance Use Type: Marijuana Sexual orientation: Straight/Heterosexual Gender identity: Female Physical Exam ED Vital Signs: Vital Signs - 24 hr 01/19/24 20:22 Temperature 97.2 F Pulse Rate 82 Respiratory Rate 16 Blood Pressure 118/86 Pulse Oximetry 98 Oxygen Delivery Method Room Air BMI result Body Mass Index 30.8 Course Course Course Narrative: I attest to this time spent taking care of the patient, obtaining history, physical, reviewing labs, imaging, speaking to my attending, speaking to specialist. 23 yo f presents with RLQ abd pain 1 day. Reports worsening pain and dysuria. Denies fever, diarrhea, chills. No hx of kidney stones. Medical Decision Making Lab Data 01/19/24 21:01 01/19/24 21:01 Labs: Lab Results 01/19/24 01/19/24 Range/Units 21:01 21:01 WBC 10.5 (4.8-10.8) X10*3/uL RBC 4.72 (4.20-5.50) X10*6/uL Hgb 13.0 (12.0-16.0) g/dl Hct 40.6 (37.0-47.0) % MCV 86.0 (80.0-98.0) fL MCH 27.5 (27.0-33.0) pg MCHC 32.0 (31.0-35.0) g/dl RDW 13.1 (11.0-16.0) % Plt Count 261 (160-400) X10*3/uL MPV 9.6 (9.4-12.3) fL Immature Gran % (Auto) 0.4 (0.0-0.4) % Neut % (Auto) 48.3 (45-73) % Lymph % (Auto) 32.5 (20-40) % [place] % (Auto) 7.8 (2-11) % Eos % (Auto) 10.5 H (0-4) % Baso % (Auto) 0.5 (0-2) % Lymph # (Auto) 3.4 (1.2-4.9) X10*3/uL [place] # (Auto) 0.8 (0.1-1.2) X10*3/uL Eos # (Auto) 1.1 H (0.0-0.4) X10*3/uL Baso # (Auto) 0.1 (0.0-0.2) X10*3/uL Abs Immat Gran (auto) 0.04 H (0.00-0.03) X10*3/uL Absolute Neuts (auto) 5.1 (2.0-8.3) x10*3/uL Absolute Nucleated RBC 0.000 (0.0-0.012) X10*3/uL Nucleated RBC % (auto) 0.0 (0.0-0.2) /100WBC Sodium 142 (135-145) mmol/L Potassium 3.9 (3.3-5.1) mmol/L Chloride 107 (96-108) mmol/L Carbon Dioxide 28 (22-29) mmol/L Anion Gap 11 L (12-20) BUN 11 (9-16) mg/dL Creatinine 0.96 (0.5-1.4) mg/dL Estim Creat Clear Calc 97.5 Estimated GFR > 60 Random Glucose 93 (60-115) mg/dL Calcium 9.6 (8.4-10.2) mg/dL Total Bilirubin 0.4 (0.0-1.0) mg/dL AST 17 (5-31) U/L ALT 15 (0-31) U/L Alkaline Phosphatase 65 (39-117) U/L Total Protein 7.7 (6.5-8.0) g/dL Albumin 4.3 (3.5-5.0) g/dL Beta HCG, Quant < 2 Cancelled mIU/mL Discharge Plan Discharge Clinical Impression: Eloped from emergency department Patient Disposition: Left W/O Completing Treatment Prescriptions: No Action (DME) nebulizers [AeroEclipse II Nebulizer] Misc See Rx Instructions .Route Qty: 1 0RF Rx Instructions: As directed albuterol sulfate 2.5 mg/0.5 mL solution for nebulization 5 mg inhalation Q6H PRN (Reason: shortness of breath or wheezing) Qty: 30 0RF albuterol sulfate 90 mcg/actuation HFA aerosol inhaler 2 puff inhalation Q6H PRN Vitamin Plus Low Iron 27 mg iron- 1 mg tablet 1 tab PO DAILY Qty: 90 3RF Trulicity 3 mg/0.5 mL pen injector 3 mg subcut QWEEK Discharge Date/Time: 01/19/24 22:36
[2024-01-19 21:05] LABS: MANUAL DIFF FLAG NO
[2024-01-19 21:07] LABS: Basophils Absolute Auto 0.1 X10*3/uL (0.0-0.2); Basophils Percent Auto 0.5 % (0-2); Eosinophils Absolute Auto 1.1 X10*3/uL (0.0-0.4); Eosinophils Percent Auto 10.5 % (0-4); Hematocrit 40.6 % (37.0-47.0); Imm Gran Abs Auto 0.04 X10*3/uL (0.00-0.03); Imm Gran Pct Auto 0.4 % (0.0-0.4); Lymphocytes Absolute Auto 3.4 X10*3/uL (1.2-4.9); Lymphocytes Percent Auto 32.5 % (20-40); Mean Corpuscular Hemoglobin 27.5 pg (27.0-33.0); Mean Platelet Volume 9.6 fL (9.4-12.3); Monocytes Absolute Auto 0.8 X10*3/uL (0.1-1.2); Monocytes Percent Auto 7.8 % (2-11); Neutrophils Absolute Auto 5.1 x10*3/uL (2.0-8.3); Neutrophils Percent Auto 48.3 % (45-73); Platelet Count 261 X10*3/uL (160-400); Red Blood Count 4.72 X10*6/uL (4.20-5.50); Red Cell Distribution Width 13.1 % (11.0-16.0); White Blood Count 10.5 X10*3/uL (4.8-10.8)
[2024-01-19 21:29] LABS: Alanine Aminotransferase 15 U/L (0-31); Albumin Level 4.3 g/dL (3.5-5.0); Alkaline Phosphatase 65 U/L (39-117); Anion Gap 11 (12-20); Aspartate Amino Transferase 17 U/L (5-31); Bilirubin Total 0.4 mg/dL (0.0-1.0); Blood Urea Nitrogen 11 mg/dL (9-16); Calcium 9.6 mg/dL (8.4-10.2); Carbon Dioxide 28 mmol/L (22-29); Chloride 107 mmol/L (96-108); Creatinine Clr Calc Pharmacy 97.5; Estimated Glomerular Filt Rate > 60; Glucose Random 93 mg/dL (60-115); Potassium 3.9 mmol/L (3.3-5.1); Sodium 142 mmol/L (135-145); Total Protein 7.7 g/dL (6.5-8.0)
[2024-01-19 21:30] LABS: HCG Quantitative < 2 mIU/mL
== END 2024-01-19 22:36 | disposition left against medical advice (07) ==
LOC: HO.ED 22:30
PROVIDERS: Physician Assistant; Emergency Provider Emergency Medicine
DX: R30.0 Dysuria (principal)
CPT/HCPCS: 36415; 80053; 84702; 85025; 99281; 99283

== ENCOUNTER 2024-02-10 14:17 | Outpatient (REF) | payer MEDICAID, SELFPAY ==
--- NOTE | ~2024-02-10 | XR_ITS ---
EXAMINATION: XR FOOT, RIGHT CLINICAL INFORMATION: Right foot injury and pain over the fourth and fifth toes for 2 weeks, worsening COMPARISON: None available. TECHNIQUE: AP, lateral, and oblique views of the right foot. FINDINGS: BONES: Bony structures are intact. There is no focal bone destruction or periosteal reaction seen. JOINTS: Alignment of joints is normal. SOFT TISSUE: Soft tissue is normal. No radiopaque foreign body or abnormal air collection is seen. XR/XR foot RT min 3V IMPRESSION: 1. Normal x-rays of right foot. No fracture or dislocation or signs of osteomyelitis are found.
== END 2024-02-10 14:18 | disposition home or self-care (01) ==
LOC: HO.HHCX 14:17
PROVIDERS: Visit Provider General Practice
DX: M79.671 Pain in right foot (principal)
CPT/HCPCS: 73630

== ENCOUNTER 2024-02-24 11:35 | Outpatient (REF) | payer MEDICAID, SELFPAY ==
--- NOTE | ~2024-02-24 | XR_ITS ---
EXAMINATION: XR FOOT, RIGHT CLINICAL INFORMATION: Right foot pain and swelling, bruising. History of pain over fourth and fifth toes and right foot injury. Persistent right foot pain, swelling and bruising. Patient states provider wants a follow-up to prior image, injured a month ago. COMPARISON: February 10, 2024. TECHNIQUE: AP, lateral, and oblique views of the right foot. FINDINGS: The bone mineralization is normal. Minimal osteoarthritic changes first metatarsophalangeal joint with minimal hypertrophic change. Alignment maintained. No displaced fracture of the fourth and fifth toes appreciated. Slight concavity and irregularity along the distal medial aspect of the fifth metatarsal head redemonstrated. Two (2) small calcifications/ossifications in the soft tissues medial to the fifth metatarsal head redemonstrated. XR/XR foot RT min 3V IMPRESSION: 1. No displaced fracture of the fourth and fifth toes appreciated. 2. Slight concavity and irregularity along the distal medial aspect of the fifth metatarsal head redemonstrated. Two (2) small calcifications/ossifications in the soft tissues medial to the fifth metatarsal head redemonstrated.
== END 2024-02-24 11:36 | disposition home or self-care (01) ==
LOC: HO.HHCX 11:35
PROVIDERS: Visit Provider Family Medicine
DX: M79.671 Pain in right foot (principal)
CPT/HCPCS: 73630

== ENCOUNTER 2024-04-28 15:51 | Emergency (ER) | payer MEDICAID, SELFPAY ==
--- NOTE | 2024-04-28 16:17 | ED_ITS ---
HPI - Female Genitourinary General Chief complaint: Urogenital-Female Stated complaint: UTI? Time Seen by Provider: 04/28/24 16:22 Source: patient Mode of arrival: ambulatory Limitations: no limitations History of Present Illness ED Provider: Loretta izquierdo APRN HPI Narrative: 23 yo female with history of asthma presents to the ER with complaints of 2 days cloudy urine with foul smell, now today with lower abdominal cramping (feels like she is going to get her menses). No fevers, chills, back pain, abdominal pain, vomiting. LMP 7/6. No vaginal discharge, rashes or lesions. No new sexual partners, low suspicion for STI. Related Data Home Medications ?Medication ?Instructions ?Recorded ?Confirmed albuterol sulfate 90 mcg/actuation 2 puff inhalation Q6H PRN 12/22/22 aerosol inhaler dulaglutide 3 mg/0.5 mL 3 mg subcut QWEEK 12/27/23 subcutaneous pen injector (Trulicity) Previous Rx's ?Medication ?Instructions ?Recorded vitamin with calcium 1 tab PO DAILY #90 tabs 12/22/22 no.72-iron 27 mg-folic acid 1 mg tablet ( Vitamins Plus Low Iron) albuterol sulfate 2.5 mg/0.5 mL 5 mg inhalation Q6H PRN shortness 03/23/23 solution for nebulization of breath or wheezing #30 ea nebulizers (AeroEclipse II #1 ea 03/23/23 Nebulizer) nitrofurantoin 100 mg PO Q12H 5 days #10 caps 04/28/24 monohydrate/macrocrystals 100 mg capsule (Macrobid) phenazopyridine 200 mg tablet 200 mg PO TID PRN pain 6 doses #6 04/28/24 (Pyridium) tabs Allergies Allergy/AdvReac Type Severity Reaction Status Date / Time shrimp Allergy Anaphylaxis Verified 04/28/24 16:19 Review of Systems 2 Review of Systems: Yes all other systems are reviewed and are negative Constitutional: Constitutional: Reports no additional constitutional complaints, Denies body ache(s), Denies chills, Denies fever(s), Denies headache(s) and Denies weakness Eyes: Eyes: Reports no additional eye complaints and Denies change in vision ENT: Reports system reviewed and no additional complaints, except as documented, Denies dizziness, Denies headache(s), Denies nasal congestion, Denies nasal discharge and Denies neck pain Cardiovascular: Cardiovascular: Reports no additional cardiovascular complaints, Denies chest pain, Denies leg edema and Denies dyspnea Respiratory: Respiratory: Reports no additional respiratory complaints, Denies cough and Denies dyspnea Gastrointestinal: Gastrointestinal: Reports no additional gastrointestinal complaints, Reports abdominal pain, Denies diarrhea, Denies nausea and Denies vomiting Genitourinary: Genitourinary: Reports no additional female genitourinary complaints, Denies dysuria, Denies urinary incontinence, Denies urinary hesitancy, Denies urinary urgency and Denies vaginal discharge Comments: Foul smelling urine, cloudy per patient Musculoskeletal: Musculoskeletal: Reports no additional musculoskeletal complaints, Denies back pain, Denies arthralgias, Denies joint swelling, Denies neck pain, Denies numbness and Denies tingling Integumentary/Breasts: Skin/Breast: Reports system reviewed and no additional complaints, except as docu and Denies rash Neurologic: Reports system reviewed and no additional complaints, except as documented, Denies Abnormal speech present, Denies dizziness, Denies headache(s), Denies numbness, Denies tingling and Denies weakness PMFSH Past Medical History Attestation statement: The following information was validated with the patient. Source: old records reviewed and nursing notes reviewed Medical History Asthma Surgical History History of dilatation and curettage Family History Family History Brother Diabetes Maternal Aunt Diabetes Mother Cancer of breast, female, Onset Age: 36 Social History Social History Household Members: Family Housing: Condominium Are you a primary geriatric care manager to a significant other at home: No Do you presently have visiting nurse or other home services: No Alcohol intake: never Patient Tobacco Use Status: Never used Tobacco Substance Use Type: Marijuana Advance Directives: No Advance Directives Information Provided: No Sexual orientation: Straight/Heterosexual Gender identity: Female Physical Exam 2 Vital Signs: Vital Signs: Last Vital Signs Temp 98.6 F 04/28/24 16:18 Pulse 104 H 04/28/24 16:18 Resp 18 04/28/24 16:18 BP 135/77 04/28/24 16:18 Pulse Ox 97 04/28/24 16:18 O2 Del Method Room Air 04/28/24 16:18 BMI result Body Mass Index 33.4 Const: General: cooperative, healthy appearing, comfortable and no acute distress Orientation/consciousness: patient oriented x3 Limitations: no limitations HEENT: Head: Yes normal to inspection Ears: hearing grossly normal bilaterally General nose exam: Normal external nose present Face and sinus: Yes normal facial exam Mouth: Normal oral and palatal mucosa present Throat: Yes posterior oropharynx normal Eyes: General: appearance normal, both eyes and all related structures P upils: Equal, round and reactive pupils present Neck: Neck: Yes normal visual inspection Chest: Chest palpation & inspection: normal inspection of the chest Resp: Effort & Inspection: normal respiratory effort Auscultation: clear to auscultation bilaterally Cardio: Rate: regular rate Rhythm: regular rhythm Peripheral pulses: P eripheral pulses 2+ throughout GI: Other: No focal abdominal pain on exam Inspection: Yes normal to inspection Palpation (GI): Soft to palpation, nontender and no guarding Auscultation: normal bowel sounds Back/Spine/Pelvis: Thoracic/Lumbar Spine: thoracic and lumbar spine normal to inspection Skin: General skin exam: no rashes or lesions noted Neuro: General: patient oriented x3, no focal motor deficits and normal sensation to monofilament Cranial nerves: Yes Equal, round and reactive pupils present Cognition (Neuro): normal cognition Speech: No Abnormal speech present Gait exam (Neuro): Normal gait present Motor exam (neuro): 5/5 motor strength present throughout Extrem: General: Yes normal to inspection Course Course Course Narrative: This is a Rapid Medical Exam performed in triage by Cristal Blake PA-C. Full HPI, ROS and PE to be performed by primary ED provider. 23 year-old F w/ PMHx presenting to the ED c/o UTI sx w/odorous and cloudy urine x2-3 days. Also reports RLQ abd pain. denies vaginal d/c bleeding. LMP 04/08/24 PE: abdomen soft and nontender Plan: Labs, UA, U-preg Reevaluation(s) Reevaluation #1: No focal abdominal pain to suggest acute appendicitis, ovarian torsion on exam. Patient was offered STI testing but she declined. She does have a mild UTI. I will start her on oral antibiotic. I did explain to her that if she has any change in her abdominal pain, worsening symptoms she should return as you will need to workup other causes of abdominal pain. Patient abdomen is soft nontender. She has little concern for her abdominal pain and feels that she may be getting her cycle. Reviewed worrisome signs and symptoms of when to return to the emergency room. Comfortable plan for discharge home. Medical Decision Making Medical Decision Making [facility] Narrative: 23 yo female with history of asthma presents to the ER with complaints of 2 days cloudy urine with foul smell, now today with RLQ pain. No fevers, chills, back pain, abdominal pain, vomiting. LMP 7/6. No vaginal discharge, rashes or lesions. No new sexual partners, low suspicion for STI. No focal abdominal pain on exam Will obtain labs, UA, ur preg. Differential Diagnosis Differential Diagnoses: The differential diagnosis associated with the presentation includes UTI Consider PID, STI but patient declined testing and workup as she has no concern for STI No focal abdominal pain to suggest acute appendicitis, ovarian torsion Admission/Observation Consideration of admission/observation: Escalation of care including admission/observation considered See course of care Lab Data [facility] Lab Attestation statement: I reviewed the patient's lab results. 04/28/24 16:28 04/28/24 16:28 Labs: Lab Results 04/28/24 Range/Units 16:28 WBC 11.7 H (4.8-10.8) X10*3/uL RBC 4.80 (4.20-5.50) X10*6/uL Hgb 13.0 (12.0-16.0) g/dl Hct 40.5 (37.0-47.0) % MCV 84.4 (80.0-98.0) fL MCH 27.1 (27.0-33.0) pg MCHC 32.1 (31.0-35.0) g/dl RDW 14.1 (11.0-16.0) % Plt Count 261 (160-400) X10*3/uL MPV 9.8 (9.4-12.3) fL Immature Gran % (Auto) 0.3 (0.0-0.4) % Neut % (Auto) 59.7 (45-73) % Lymph % (Auto) 27.1 (20-40) % [place] % (Auto) 6.0 (2-11) % Eos % (Auto) 6.4 H (0-4) % Baso % (Auto) 0.5 (0-2) % Lymph # (Auto) 3.2 (1.2-4.9) X10*3/uL [place] # (Auto) 0.7 (0.1-1.2) X10*3/uL Eos # (Auto) 0.8 H (0.0-0.4) X10*3/uL Baso # (Auto) 0.1 (0.0-0.2) X10*3/uL Abs Immat Gran (auto) 0.04 H (0.00-0.03) X10*3/uL Absolute Neuts (auto) 6.9 (2.0-8.3) x10*3/uL Absolute Nucleated RBC 0.000 (0.0-0.012) X10*3/uL Nucleated RBC % (auto) 0.0 (0.0-0.2) /100WBC Sodium 139 (135-145) mmol/L Potassium 4.3 (3.3-5.1) mmol/L Chloride 110 H (96-108) mmol/L Carbon Dioxide 21 L (22-29) mmol/L Anion Gap 12 (12-20) BUN 9 (9-16) mg/dL Creatinine 0.90 (0.5-1.4) mg/dL Estim Creat Clear Calc 108.3 Estimated GFR > 60 Random Glucose 94 (60-115) mg/dL Calcium 9.2 (8.4-10.2) mg/dL Magnesium 1.9 (1.6-2.6) mg/dL Total Bilirubin 0.4 (0.0-1.0) mg/dL Direct Bilirubin 0.2 (0.0-0.5) mg/dL AST 12 (5-31) U/L ALT 9 (0-31) U/L Alkaline Phosphatase 60 (39-117) U/L Total Protein 7.2 (6.5-8.0) g/dL Albumin 4.1 (3.5-5.0) g/dL Lipase 18 (8-78) U/L Urine Color Yellow Urine Appearance Clear Urine pH 6.5 (5.0-9.0) Ur Specific [place] 1.020 (1.005-1.025) Urine Protein Negative (Neg-Trace) mg/dL Urine Glucose (UA) Negative (Negative) mg/dL Urine Ketones Negative (Negative) mg/dL Urine Blood Negative (Negative) Urine Nitrite Positive H (Negative) Ur Leukocyte Esterase Trace H (Negative) Urine RBC 0-2 (0-2) /HPF Urine WBC 11-20 H (0-5) /HPF Ur Squamous Epith Cells 3-5 (0-2) /HPF Urine Bacteria 3+ (None Seen) Hyaline Casts 0-2 (0-2) /LPF Urine Test NEGATIVE (NEGATIVE) Independent Historian Clinical information obtained from an independent historian. History obtained from or confirmed by: Friend Tests considered The following testing was considered but not selected: No focal abdominal pain or CVA tenderness suggest need for CT imaging Discharge Plan Discharge Clinical Impression: Urinary tract infection Patient Disposition: Home, Self-Care Instructions: Urinary Tract Infection in Women (ED) Additional Instructions: Return for increasing pain, fever, vomiting as discussed Take the antibiotics as prescribed Increase fluids Prescriptions: New nitrofurantoin monohyd/m-cryst [Macrobid] 100 mg capsule 100 mg PO Q12H 5 Days Qty: 10 0RF Rx Instructions: must administer with a meal/food phenazopyridine [Pyridium] 200 mg tablet 200 mg PO TID PRN (Reason: pain) Qty: 6 0RF No Action (DME) nebulizers [AeroEclipse II Nebulizer] Misc See Rx Instructions .Route Qty: 1 0RF Rx Instructions: As directed albuterol sulfate 2.5 mg/0.5 mL solution for nebulization 5 mg inhalation Q6H PRN (Reason: shortness of breath or wheezing) Qty: 30 0RF albuterol sulfate 90 mcg/actuation HFA aerosol inhaler 2 puff inhalation Q6H PRN Vitamin Plus Low Iron 27 mg iron- 1 mg tablet 1 tab PO DAILY Qty: 90 3RF Trulicity 3 mg/0.5 mL pen injector 3 mg subcut QWEEK Referrals: [facility] [Primary Care Provider] - 1 week Print Language: Yi
[2024-04-28 16:18] VITALS: BP 135/77; PULSE 104; RESP 18; TEMP 37; O2SAT 97; BMI 33.4
[2024-04-28 16:34] LABS: MANUAL DIFF FLAG NO
[2024-04-28 16:37] LABS: Basophils Absolute Auto 0.1 X10*3/uL (0.0-0.2); Basophils Percent Auto 0.5 % (0-2); Eosinophils Absolute Auto 0.8 X10*3/uL (0.0-0.4); Eosinophils Percent Auto 6.4 % (0-4); Hematocrit 40.5 % (37.0-47.0); Imm Gran Abs Auto 0.04 X10*3/uL (0.00-0.03); Imm Gran Pct Auto 0.3 % (0.0-0.4); Lymphocytes Absolute Auto 3.2 X10*3/uL (1.2-4.9); Lymphocytes Percent Auto 27.1 % (20-40); Mean Corpuscular HGB Conc 32.1 g/dl (31.0-35.0); Mean Corpuscular Hemoglobin 27.1 pg (27.0-33.0); Mean Corpuscular Volume 84.4 fL (80.0-98.0); Mean Platelet Volume 9.8 fL (9.4-12.3); Monocytes Absolute Auto 0.7 X10*3/uL (0.1-1.2); Neutrophils Absolute Auto 6.9 x10*3/uL (2.0-8.3); Neutrophils Percent Auto 59.7 % (45-73); Platelet Count 261 X10*3/uL (160-400); Red Cell Distribution Width 14.1 % (11.0-16.0); White Blood Count 11.7 X10*3/uL (4.8-10.8)
[2024-04-28 16:39] LABS: Appearance Urine Clear; Color Urine Yellow; Glucose Urine UA Negative (Negative); Leukocyte Esterase Urine Trace (Negative); Nitrite Urine Positive (Negative); PH 6.5 (5.0-9.0); UMIC TRIGGER UACC YES; Urine Blood Negative (Negative); Urine Ketones Negative (Negative); Urine Protein Negative (Neg-Trace)
[2024-04-28 16:40] LABS: UPreg QC Valid YES; Urine Pregnancy NEGATIVE (NEGATIVE)
[2024-04-28 16:44] LABS: Bacteria Urine 3+ (None Seen); Hyaline Casts Urine 0-2 /LPF (0-2); RBC Urine 0-2 /HPF (0-2); UACC Culture Trigger YES
[2024-04-28 16:50] LABS: Alanine Aminotransferase 9 U/L (0-31); Albumin Level 4.1 g/dL (3.5-5.0); Alkaline Phosphatase 60 U/L (39-117); Anion Gap 12 (12-20); Aspartate Amino Transferase 12 U/L (5-31); Bilirubin Direct 0.2 mg/dL (0.0-0.5); Bilirubin Total 0.4 mg/dL (0.0-1.0); Blood Urea Nitrogen 9 mg/dL (9-16); Calcium 9.2 mg/dL (8.4-10.2); Carbon Dioxide 21 mmol/L (22-29); Chloride 110 mmol/L (96-108); Creatinine Clr Calc Pharmacy 108.3; Estimated Glomerular Filt Rate > 60; Glucose Random 94 mg/dL (60-115); Lipase 18 U/L (8-78); Magnesium 1.9 mg/dL (1.6-2.6); Potassium 4.3 mmol/L (3.3-5.1); Sodium 139 mmol/L (135-145); Total Protein 7.2 g/dL (6.5-8.0)
[2024-04-28 17:14] VITALS: BP 117/72; PULSE 105; RESP 17; TEMP 36.6; O2SAT 99
[2024-04-28 17:16] VITALS: BP 117/72; PULSE 105; RESP 17; TEMP 36.6; O2SAT 99
== END 2024-04-28 17:24 | disposition home or self-care (01) ==
PROVIDERS: Physician Assistant; Emergency Provider Emergency Medicine
DX: N39.0 Urinary tract infection, site not specified (principal); B96.20 Unspecified Escherichia coli [E. coli] as the cause of diseases classified elsewhere; J45.909 Unspecified asthma, uncomplicated
CPT/HCPCS: 36415; 80048; 80076; 81001; 81025; 83690; 83735; 85025; 87086; 87088; 87186; 99283

== ENCOUNTER 2024-05-04 17:41 | Outpatient (REF) | payer MEDICAID, SELFPAY ==
[2024-05-04 19:10] LABS: Bacterial Vaginosis PCR NEGATIVE (Negative); Candida Group PCR DETECTED (Not Detect); Candida glab krusei PCR NOT DETECTED (Not Detect); Trichomonas vaginalis PCR NOT DETECTED (Not Detect)
[2024-05-04 19:41] LABS: CT PCR NOT DETECTED (Not Detect.); NG PCR NOT DETECTED (Not Detect.)
== END 2024-05-04 17:42 | disposition home or self-care (01) ==
LOC: HO.HHCLNP 17:41
PROVIDERS: Visit Provider Nurse Practitioner Family
DX: N76.0 Acute vaginitis (principal)
CPT/HCPCS: 0352U; 87491; 87591

== ENCOUNTER 2024-06-07 11:06 | Outpatient (REF) | payer MEDICAID, SELFPAY ==
[2024-06-07 14:11] LABS: HCG Quantitative < 2 mIU/mL
[2024-06-07 14:26] LABS: TSH reflex Free T4 0.87 uIU/mL (0.32-4.0)
[2024-06-09 03:14] LABS: Follicle Stimulating Hormone 8.3 mIU/mL; Lutenizing Hormone 4.2 mIU/mL; Prolactin 10.4 ng/mL
[2024-06-11 15:17] LABS: Anti-Mullerian Hormone-Female 1.13 ng/mL (1.02-14.63)
[2024-06-15 00:48] LABS: Testosterone-Bioavailable 4.4 ng/dL (0.5-8.5); Testosterone-Free 2.4 pg/mL (0.2-5.0); Testosterone-SHBG 12 nmol/L (17-124); Testosterone-Total 10 ng/dL (2-45)
[2024-06-15 23:27] LABS: Estradiol Ultra Sensitive 21 pg/mL
[2024-06-17 18:29] LABS: Progesterone <0.1 ng/mL
== END 2024-06-07 11:07 | disposition home or self-care (01) ==
LOC: HO.HHCL 11:06
PROVIDERS: Referring Provider Advanced Practice Midwife; Visit Provider Registered Nurse
DX: N93.9 Abnormal uterine and vaginal bleeding, unspecified (principal); N97.0 Female infertility associated with anovulation
CPT/HCPCS: 36415; 82166; 82670; 83001; 83002; 84144; 84146; 84403; 84443; 84702

== ENCOUNTER 2024-09-03 14:09 | Emergency (ER) | payer MEDICAID, SELFPAY ==
[2024-09-03 14:34] VITALS: BP 133/70; PULSE 104; RESP 16; TEMP 37.3; O2SAT 98; BMI 31.6
--- NOTE | 2024-09-03 14:39 | ED_ITS ---
HPI - General Adult General Chief complaint: Dental/Oral Stated complaint: wisdom tooth pain and sore throat Time Seen by Provider: 09/03/24 14:38 Source: patient Mode of arrival: ambulatory Limitations: no limitations History of Present Illness ED Provider: Joseph Guerra PA-C HPI narrative: 23-year-old female healthy presents to ED left lower molar pain for couple of days. Patient thinks her wisdom tooth is bothering her. Patient denies any recent trauma, facial swelling, neck swelling, drooling, change in voice, or inability tolerate solid food/liquid. Patient called [facility] and there was no available appointment. Related Data Home Medications ?Medication ?Instructions ?Recorded ?Confirmed albuterol sulfate 90 mcg/actuation 2 puff inhalation Q6H PRN 12/22/22 aerosol inhaler dulaglutide 3 mg/0.5 mL 3 mg subcut QWEEK 12/27/23 subcutaneous pen injector (Trulicity) Previous Rx's ?Medication ?Instructions ?Recorded vitamin with calcium 1 tab PO DAILY #90 tabs 12/22/22 no.72-iron 27 mg-folic acid 1 mg tablet ( Vitamins Plus Low Iron) albuterol sulfate 2.5 mg/0.5 mL 5 mg inhalation Q6H PRN shortness 03/23/23 solution for nebulization of breath or wheezing #30 ea nebulizers (AeroEclipse II #1 ea 03/23/23 Nebulizer) nitrofurantoin 100 mg PO Q12H 5 days #10 caps 04/28/24 monohydrate/macrocrystals 100 mg capsule (Macrobid) phenazopyridine 200 mg tablet 200 mg PO TID PRN pain 6 doses #6 04/28/24 (Pyridium) tabs amoxicillin 875 mg-potassium 1 tab PO Q12H 10 days #20 tabs 09/03/24 clavulanate 125 mg tablet naproxen 500 mg tablet 500 mg PO BID PRN pain 7 days #14 09/03/24 tabs Allergies Allergy/AdvReac Type Severity Reaction Status Date / Time shrimp Allergy Anaphylaxis Verified 09/03/24 14:37 Review of Systems 2 Review of Systems: LEft lower molar pain Yes all other systems are reviewed and are negative PMFSH Past Medical History Medical History Asthma Surgical History History of dilatation and curettage Family History Family History Brother Diabetes Maternal Aunt Diabetes Mother Cancer of breast, female, Onset Age: 36 Social History Social History Household Members: Family [facility] Are you a primary complex care nurse practitioner to a significant other at home: No Do you presently have visiting nurse or other home services: No Alcohol intake: never Patient Tobacco Use Status: Never used Tobacco Substance Use Type: Marijuana Advance Directives: No Advance Directives Information Provided: No Sexual orientation: Straight/Heterosexual Gender identity: Female Physical Exam ED Vital Signs: Vital Signs - 24 hr 09/03/24 14:34 09/03/24 14:50 Temperature 99.2 F 99.2 F Pulse Rate 104 H 104 H Respiratory Rate 16 16 Blood Pressure 133/70 133/70 Pulse Oximetry 98 98 Oxygen Delivery Method Room Air Room Air BMI result Body Mass Index 31.6 Const General: cooperative, healthy appearing, comfortable, no acute distress, well developed, alert, awake and Physically active Orientation/consciousness: patient oriented x3 HENMT Head: Yes normal to inspection, Yes No palpable skull fracture present, Yes normocephalic and Yes atraumatic Teeth image: 2 1. Positive for tenderness on palpation. Negative for any erythema, or gum fluctuance. Negative for signs of trismus. Positive for slight gum swelling. Rest of the oral cavity normal. Throat: Yes posterior oropharynx normal, Yes tonsils normal and Yes uvula midline Eyes General: appearance normal, both eyes and all related structures Neck Neck: Yes normal visual inspection, Yes full ROM, Yes no lymphadenopathy, Yes no meningeal signs, Yes trachea midline, Yes supple, No anterior neck swelling and No tender Chest Chest palpation & inspection: normal inspection of the chest and normal palpation of entire chest wall Resp Effort & Inspection: normal respiratory effort and able to speak in complete sentences Auscultation: clear to auscultation bilaterally Cardio Jugular venous distension: no JVD Heart sounds: S1 normal heart sound present and S2 normal heart sound present GI Inspection: Yes normal to inspection Palpation (GI): Soft to palpation, not firm, nontender, no guarding and not rigid General: No CVA tenderness and Yes no CVA tenderness Back/Spine/Pelvis Back: no CVA tenderness, No CVA tenderness and No back tenderness Skin General skin exam: no rashes or lesions noted, elasticity normal and turgor normal Neuro General: patient oriented x3, gait normal, tone normal, moves all extremities, Normal light touch and pain sensation, no meningeal signs, no focal motor deficits, CN's II-XI intact bilaterally and normal sensation to monofilament Extrem General: Yes normal to inspection, Yes full ROM and Yes capillary refill normal Psych Appearance: grossly normal, well kempt and not disheveled Medical Decision Making Medical Decision Making [facility]DM Narrative: 22-year-old female presents to ED for left lower molar pain for the past couple of days. Patient states her wisdom tooth hurts. Patient tried to call dental Clinic but they have no availability. Patient denies any recent trauma, nausea, vomiting, facial swelling, neck swelling, drooling, or change in voice. Physical exam negative for signs of peritonsillar abscess, retropharyngeal abscess, estephanie anigna, epiglottitis, anaphylaxis, severe oral dental abscess, or any other life-threatening etiologies. Patient explained worrisome signs and informed to return to the ED immediately. Differential Diagnosis Differential Diagnoses: The differential diagnosis associated with the presentation includes (toothache, dental wisdom) Admission/Observation Consideration of admission/observation: Escalation of care including admission/observation considered Independent Historian Clinical information obtained from an independent historian. History obtained from or confirmed by: Other (patient) External Record Review External record reviewed: Other (prior visits) Prescription Management I considered prescription management with: Antibiotic Discharge Plan Discharge Clinical Impression: Toothache Patient Disposition: Home, Self-Care Instructions: Toothache (ED) Additional Instructions: Physical exam may indicate impacted wisdom tooth. You will be discharged antibiotic and pain medication. Recommend calling [facility] again to schedule an earlier appointment. Return to ED immediately for any facial swelling, neck swelling, drooling, change in voice, inability tolerate solid food/liquid, severe dental pain, fever, chills, headache, or any other concerning symptoms. Prescriptions: New amoxicillin-pot clavulanate 875-125 mg tablet 1 tab PO Q12H 10 Days Qty: 20 0RF naproxen 500 mg tablet 500 mg PO BID PRN (Reason: pain) 7 Days Qty: 14 0RF No Action nitrofurantoin monohyd/m-cryst [Macrobid] 100 mg capsule 100 mg PO Q12H 5 Days Qty: 10 0RF Rx Instructions: must administer with a meal/food phenazopyridine [Pyridium] 200 mg tablet 200 mg PO TID PRN (Reason: pain) Qty: 6 0RF (DME) nebulizers [AeroEclipse II Nebulizer] Misc See Rx Instructions .Route Qty: 1 0RF Rx Instructions: As directed albuterol sulfate 2.5 mg/0.5 mL solution for nebulization 5 mg inhalation Q6H PRN (Reason: shortness of breath or wheezing) Qty: 30 0RF albuterol sulfate 90 mcg/actuation HFA aerosol inhaler 2 puff inhalation Q6H PRN Vitamin Plus Low Iron 27 mg iron- 1 mg tablet 1 tab PO DAILY Qty: 90 3RF Trulicity 3 mg/0.5 mL pen injector 3 mg subcut QWEEK Stand Alone Forms: Work/School Release Interventions: ED Discharge Assessment Last Done: 09/03/24 14:50 Discharge Date/Time: 09/03/24 14:51 Print Language: Kyrgyz
[2024-09-03 14:50] VITALS: BP 133/70; PULSE 104; RESP 16; TEMP 37.3; O2SAT 98
== END 2024-09-03 14:51 | disposition home or self-care (01) ==
PROVIDERS: Emergency Provider Emergency Medicine; PCP Registered Nurse
DX: K08.89 Other specified disorders of teeth and supporting structures (principal)
CPT/HCPCS: 99282; 99283

== ENCOUNTER 2024-12-28 16:40 | Emergency (ER) | payer OTHER, SELFPAY ==
[2024-12-28 17:04] VITALS: BP 107/66; PULSE 81; RESP 18; TEMP 36.7; O2SAT 99; BMI 34.1
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
[2024-12-28 19:17] VITALS: BP 107/66; PULSE 81; RESP 18; TEMP 36.7; O2SAT 99
== END 2024-12-28 19:19 | disposition home or self-care (01) ==
PROVIDERS: Emergency Provider Emergency Medicine; PCP Registered Nurse
DX: O9A.219 Injury, poisoning and certain other consequences of external causes complicating pregnancy, unspecified trimester (principal); S00.93XA Contusion of unspecified part of head, initial encounter; Z3A.00 Weeks of gestation of pregnancy not specified; Y04.2XXA Assault by strike against or bumped into by another person, initial encounter; Y93.89 Activity, other specified; Y92.9 Unspecified place or not applicable; Y99.9 Unspecified external cause status
CPT/HCPCS: 99282; 99284

== ENCOUNTER 2025-04-22 11:12 | Outpatient (REF) | payer OTHER, SELFPAY ==
--- OUTSIDE RECORDS SUMMARY | 2025-04-23 12:29 | XMS_ITS | Encounter Summary ---
Author Organization [employer] Address [address] [place] [address] Care Team Providers Care Financial Sales Associate Name Role Phone Mari Clark ACID MAKER Primary Care Provider [phone] Reason for Visit * Reason Comments Med Refill Encounter Details Date Type Department Care Team (Late st Contact Info) Description 09/28/2023 Refill [facility] [address] [place] [address] Monserrat Ivey, DDS [address] [place] [address] Social History Tobacco Use Types Packs/Day Years Used Date Smoking Tobacco: Never Passive Smoke Exposure: Never Smokeless Tobacco: Never Alcohol Use Standard Drinks/Week Comments Not Asked 0 (1 standard drink = 0.6 oz pur e alcohol) socially Depression Answer Date Recorded Patient Health Questionnaire-9 Score 0 09/05/2023 Patient Health Questionnaire-9 Score 0 09/05/2023 Last PHQ-9: Questionnaire Data Not on file 1 11/06/2022 Housing Stability Answer Date Recorded What is your housing situation today? I have brody rodriguez 09/05/[address] you li ve. Do you have problems with any of the following? None of the above 09/05/2023 Food Insecurity Answer Date Recorded Within the past 12 months, y ou worried that your food would run out before you got money to buy more: Never True 09/05/2023 Within the past 12 months,th e food you bought just didn't last and you didn't have enough money to get more: Never True 01/2023 Transportation Answer Date Recorded In the past 12 months, has l ack of transportation kept you from medical appts, meetings, work or from getting things needed for daily living? No 09/05/2023 Utilities Answer Date Recorded In the past 12 months, has t he electric, gas, oil or water company threatened to shut off services in your home? No 09/05/2023 Depression Answer Date Recorded Patient Health Questionnaire-2 Score 0 09/05/2023 Comments No Sex and Gender Information Value Date Recorded Sex Assigned at Female 08/02/2022 10:16 AM EDT Legal Sex Female 10:16 AM EDT Gender Identity Female 08/02/2022 10:16 AM EDT Sexual Orientation Straight 08/02/2022 10 :16 AM EDT documented as of this encounter Miscellaneous Notes * Telephone Encounter - Monserrat Ivey DDS - 09/28/2023 4:03 PM EST Approving, but needs appt for additional refills. documented in this encounter Plan of Treatment Not on file documented as of this encounter Visit Diagnoses Not on filedocumented in this encounter Additional Health Concerns Assessment Noted Time PHQ-9 Depression Total Score: 0 09/05/20 23 10:18 AM EST documented as of this encounter Care Teams Financial Sales Associate Relationship Specialty Start Date End Date Mari Clark FNP [address] [place] [id number] PCP - General Family Medicine 03/16/22 documented as of this encounter
[2025-04-23 14:03] LABS: Bacterial Vaginosis PCR POSITIVE (Negative); Candida Group PCR DETECTED (Not Detect); Candida glab krusei PCR NOT DETECTED (Not Detect); Trichomonas vaginalis PCR NOT DETECTED (Not Detect)
== END 2025-04-22 11:13 | disposition home or self-care (01) ==
LOC: HO.HHCLNP 11:12
PROVIDERS: Visit Provider Nurse Practitioner
DX: N89.8 Other specified noninflammatory disorders of vagina (principal); R35.0 Frequency of micturition
CPT/HCPCS: 81515; 87086

== ENCOUNTER 2025-08-05 14:30 | Outpatient (REF) | payer SELFPAY ==
[2025-08-05 16:49] LABS: Anion Gap 9 (12-20); Blood Urea Nitrogen 7 mg/dL (9-16); Calcium 8.5 mg/dL (8.4-10.2); Carbon Dioxide 26 mmol/L (22-29); Chloride 108 mmol/L (96-108); Cholesterol 131 mg/dL (<200); Estimated Glomerular Filt Rate > 60; HDL Cholesterol 57 mg/dL (>40); Potassium 3.9 mmol/L (3.3-5.1); Sodium 139 mmol/L (135-145); Triglycerides 46 mg/dL (<150)
[2025-08-05 17:45] LABS: Appearance Urine Clear; Glucose Urine UA Negative (Negative); PH 7.0 (5.0-9.0); Specific Gravity - Urine 1.020 (1.005-1.025); UMIC TRIGGER UACC YES
[2025-08-05 17:50] LABS: UACC Culture Trigger YES
== END 2025-08-05 14:31 | disposition home or self-care (01) ==
LOC: HO.HHCL 14:30
PROVIDERS: PCP Registered Nurse; Visit Provider Registered Nurse
DX: R35.0 Frequency of micturition (principal); E66.811 Obesity, class 1; Z68.31 Body mass index [BMI] 31.0-31.9, adult; Z13.29 Encounter for screening for other suspected endocrine disorder; Z13.1 Encounter for screening for diabetes mellitus
CPT/HCPCS: 36415; 80048; 80061; 81001; 83036; 84443; 87086